=== PATIENT | female | born 1970 | race Two or more races ===

== ENCOUNTER 2016-06-18 03:43 | Emergency (ER) | payer MEDICAID ==
[~2016-06-18] VITALS: Ht 152.4 cm; Wt 80.7 kg
[2016-06-18 03:52] VITALS: BP 161/90
[2016-06-18 04:41] LABS: Basophils # (auto) 0.1 uL; Basophils % (auto) 0.6 % (0.0-2.0); DEFINITIVE VIEW TRANSMISSION; Eosinophils # (auto) 0.2 uL; Eosinophils % (auto) 1.5 % (0.0-7.0); Hemoglobin 9.4 g/dL (12.2-16.2); Lymphocytes # (auto) 4.5 uL; Lymphocytes % (auto) 37.6 % (10.0-50.0); Mean Corpuscular Hemoglobin 16.8 pg (28.0-32.0); Mean Corpuscular Hgb Conc. 30.2 g/dL (32.0-36.0); Mean Corpuscular Volume 55.8 fL (80.0-100.0); Mean Platelet Volume 8.3 fL (7.4-10.4); Monocytes # (auto) 0.7 uL; Monocytes % (auto) 5.5 % (0.0-12.0); Neutrophils # (auto) 6.6 uL; Neutrophils % (auto) 54.8 % (37.0-80.0); Platelet Count (auto) 590 10^3/uL (140-450)
[2016-06-18 05:01] LABS: Red Cell Distribution Width 22.8 % (11.6-16.0)
[2016-06-18 05:12] LABS: Albumin 3.4 g/dL (3.4-5.0); Anion Gap 15 (5-15); Aspartate Aminotransferase 16 U/L (15-37); Blood Urea Nitrogen 10 mg/dL (7-18); Calcium 8.2 mg/dL (8.5-10.1); Carbon Dioxide 21 mmol/L (21-32); Chloride 101 mmol/L (98-107); GFR African American 96 mL/min; GFR Non-African American 80 mL/min; Potassium 3.3 mmol/L (3.5-5.1); Sodium 137 mmol/L (136-145)
[2016-06-18 05:16] LABS: Alkaline Phosphatase 98 U/L (45-117); Bilirubin, Total 0.3 mg/dL (0.2-1.0); Total Protein 7.6 g/dL (6.4-8.2)
[2016-06-18 05:24] LABS: Glucose 414 mg/dL (74-106)
[2016-06-18 05:52] LABS: Anisocytosis Slight; Platelet Estimate Increased
[2016-06-18 05:53] LABS: Hypochromia Moderate; Microcytosis Marked
== END 2016-06-18 07:53 | disposition left against medical advice (07) ==
LOC: ER 03:43 → EDBD 03:43 → ER 07:53
DX: R07.89 Other chest pain (principal); M25.512 Pain in left shoulder; Z53.21 Procedure and treatment not carried out due to patient leaving prior to being seen by health care provider
CPT/HCPCS: 36415; 80053; 83735; 84484; 85025; 93005

== ENCOUNTER 2018-01-06 14:31 | Emergency (ER) | payer MEDICAID ==
[~2018-01-06] VITALS: Ht 162.6 cm; Wt 86.2 kg
[2018-01-06 15:39] LABS: Basophils # (auto) 0 uL; Basophils % (auto) 0.2 % (0.0-2.0); Eosinophils # (auto) 0 uL; Hematocrit 31.5 % (36.0-46.0); Lymphocytes # (auto) 0.3 uL; Lymphocytes % (auto) 4.2 % (10.0-50.0); Monocytes # (auto) 0 uL
[2018-01-06 15:41] LABS: Eosinophils % (auto) 0.1 % (0.0-7.0); Hemoglobin 9.7 g/dL (12.2-16.2); Mean Corpuscular Hgb Conc. 30.9 g/dL (32.0-36.0); Mean Corpuscular Volume 64.7 fL (80.0-100.0); Monocytes % (auto) 0.3 % (0.0-12.0); Neutrophils # (auto) 7.5 uL; Neutrophils % (auto) 95.2 % (37.0-80.0); Nucleated Red Blood Cells % 0.1 %; Platelet Count (auto) 308 10^3/uL (140-450); Red Blood Cells 4.86 10^6/uL (4.0-5.20); White Blood Cell 7.9 10^3/uL (4.4-10.8)
[2018-01-06 15:43] LABS: Red Cell Distribution Width 25.6 % (11.8-14.3)
[2018-01-06 15:57] LABS: BUN/Creatinine Ratio 11.4; Calcium 8.1 mg/dL (8.5-10.1); Potassium 3.3 mmol/L (3.5-5.1)
[2018-01-06 16:00] LABS: Bilirubin, Total 0.4 mg/dL (0.2-1.0); Total Protein 7.1 g/dL (6.4-8.2)
[2018-01-06] MEDS ORDERED: SODIUM CHLORIDE 0.9% 1,000 ML IV ONE ×2 (16:14)
[2018-01-06] MEDS ORDERED: cefTRIAXone 1GM/10ml IVPUSH 10 ML IV ONE ×2 (16:45→17:22)
[2018-01-06] MEDS ORDERED: POTASSIUM EFFERVESENT TAB 25 MEQ PO ONE (16:45)
[2018-01-06] MEDS ORDERED: POTASSIUM EFFERVESENT TAB 25 MEQ ONE (17:22)
[2018-01-06 17:38] VITALS: BP 187/107
[2018-01-06] MEDS ORDERED: cloNIDine HCL 0.1 MG TAB ONE (17:39)
[2018-01-06] MEDS ORDERED: ACETAMINOPHEN 500 MG TAB PO ONE ×2 (17:40→17:45)
[2018-01-06 17:44] LABS: Urine Bacteria NONE SEEN /hpf (None Seen); Urine Blood 3+ /uL (Negative); Urine Mucus FEW (None Seen); Urine Specific Gravity 1.017 (1.001-1.035); Urine WBC 190 /hpf (0 - 5); Urine WBC Clumps PRESENT /hpf (None Seen)
[2018-01-06] MEDS ORDERED: cloNIDine HCL 0.1 MG TAB PO ONE (17:45)
[2018-01-06] MEDS ORDERED: IBUPROFEN 600 MG TAB PO ONE ×2 (18:09→18:15)
== END 2018-01-06 18:47 | disposition home or self-care (01) ==
LOC: EDBD 14:31 → ER 14:37
DX: E11.65 Type 2 diabetes mellitus with hyperglycemia (principal); J40 Bronchitis, not specified as acute or chronic; E87.6 Hypokalemia; N12 Tubulo-interstitial nephritis, not specified as acute or chronic; E11.9 Type 2 diabetes mellitus without complications; I10 Essential (primary) hypertension
CPT/HCPCS: 36415; 71045; 74176; 80053; 81001; 81025; 85025; 87040; 93005; 96361; 96374; 99285; J0696; J7030

== ENCOUNTER 2022-09-13 23:14 | Inpatient (IN) | payer MEDICAID ==
[~2022-09-13] VITALS: Ht 152.4 cm; Wt 75.0 kg
[2022-09-13 23:47] LABS: Eosinophils # (auto) 0.3 10 ^3/uL (0-0.8); Eosinophils % (auto) 2.5 % (0.0-7.0); Hemoglobin 13.6 g/dL (12.2-16.2); Lymphocytes # (auto) 3.5 10 ^3/uL (0.4-5.4); Nucleated Red Blood Cells % 0.1 %; Red Cell Distribution Width 16.6 % (11.8-14.3)
[2022-09-13 23:49] LABS: Basophils # (auto) 0 10 ^3/uL (0-0.2); Basophils % (auto) 0.5 % (0.0-2.0); Hematocrit 41.3 % (36.0-46.0); Lymphocytes % (auto) 33.6 % (10.0-50.0); Mean Corpuscular Hemoglobin 26.6 pg (28.0-32.0); Mean Corpuscular Hgb Conc. 32.9 g/dL (32.0-36.0); Mean Corpuscular Volume 80.8 fL (80.0-100.0); Monocytes # (auto) 0.7 10 ^3/uL (0-1.3); Monocytes % (auto) 6.7 % (0.0-12.0); Neutrophils % (auto) 56.7 % (37.0-80.0); Red Blood Cells 5.11 10^6/uL (4.0-5.20); White Blood Cell 10.5 10^3/uL (4.4-10.8)
[2022-09-14 00:06] LABS: Albumin 3.3 g/dL (3.4-5.0); BUN/Creatinine Ratio 14.1 (10.0-20.0); Potassium 3.7 mmol/L (3.5-5.1)
[2022-09-14 00:07] LABS: INR 0.93 (0.9-1.15); Partial Thromboplastin Time 28.8 sec (24.6-33.4)
[2022-09-14 00:09] LABS: Bilirubin, Total 0.3 mg/dL (0.2-1.0); Lactic Acid w/Reflex 2.8 mmol/L (0.4-2.0); Total Protein 7.7 g/dL (6.4-8.2)
[2022-09-14] MEDS ORDERED: HEPARIN SODIUM (PORCINE) 5000 UNITS/ML 1ML VIAL IV ONE (00:30)
[2022-09-14] MEDS ORDERED: HEPARIN DRIP/D5W 100UNITS/ML 250 ML IV SCH ×2 (00:30→15:30)
[2022-09-14] MEDS ORDERED: HYDROcodone-ACET 5/325MG TAB PO PRN (05:30)
[2022-09-14] MEDS ORDERED: ONDANSETRON HCL 4 MG/2 ML VIAL IV PRN (05:30)
[2022-09-14] MEDS ORDERED: DEXTROSE (50%) 50ML SYRG IV PRN (05:30)
[2022-09-14] MEDS ORDERED: SODIUM CHLORIDE 0.9% 1,000 ML IV SCH (05:30)
[2022-09-14] MEDS ORDERED: ACETAMINOPHEN 325 MG TAB PO PRN (05:30)
[2022-09-14] MEDS ORDERED: DOCUSATE SOD 100 MG CAP PO PRN (05:30)
[2022-09-14] MEDS ORDERED: MORPHINE SULFATE INJ 2 MG/ml SYRG IV PRN (06:00)
[2022-09-14] MEDS ORDERED: NITROGLYCERIN 0.4 MG SL TAB SL PRN (06:00)
[2022-09-14] MEDS: InsuLIN REG 1unit/0.01ml Soln (100units/ml) SC SCH ×2 (06:51→15:58)
[2022-09-14] MEDS: ACCU-CHEK COMFORT CURVE STRIP VI SCH ×2 (06:52→15:54)
[2022-09-14 07:21] LABS: Basophils # (auto) 0 10 ^3/uL (0-0.2); Eosinophils # (auto) 0.3 10 ^3/uL (0-0.8); Hemoglobin 12.8 g/dL (12.2-16.2); Lymphocytes # (auto) 3.2 10 ^3/uL (0.4-5.4); Lymphocytes % (auto) 31.7 % (10.0-50.0); Monocytes # (auto) 0.6 10 ^3/uL (0-1.3); White Blood Cell 10.2 10^3/uL (4.4-10.8)
[2022-09-14 07:23] LABS: Basophils % (auto) 0.5 % (0.0-2.0); Eosinophils % (auto) 2.6 % (0.0-7.0); Hematocrit 38.3 % (36.0-46.0); Mean Corpuscular Hemoglobin 26.5 pg (28.0-32.0); Mean Corpuscular Hgb Conc. 33.5 g/dL (32.0-36.0); Monocytes % (auto) 5.9 % (0.0-12.0); Neutrophils % (auto) 59.3 % (37.0-80.0); Nucleated Red Blood Cells % 0.1 %; Red Blood Cells 4.85 10^6/uL (4.0-5.20); Red Cell Distribution Width 16.8 % (11.8-14.3)
[2022-09-14 07:35] LABS: INR 0.96 (0.9-1.15); Partial Thromboplastin Time 58.9 sec (24.6-33.4)
[2022-09-14 07:39] LABS: Albumin 3.2 g/dL (3.4-5.0); Calcium 8.5 mg/dL (8.5-10.1); Potassium 3.5 mmol/L (3.5-5.1)
[2022-09-14 07:43] LABS: BUN/Creatinine Ratio 15.9 (10.0-20.0); Bilirubin, Total 0.3 mg/dL (0.2-1.0); Total Protein 6.9 g/dL (6.4-8.2)
[2022-09-14] MEDS ORDERED: SODIUM CHLORIDE 0.9% 500 ML IV ONE (07:45)
[2022-09-14] MEDS ORDERED: cefTRIAXone 1GM/50ML D5W 50 ML IV SCH (09:00)
[2022-09-14 09:09] VITALS: BP 152/85
[2022-09-14] MEDS ORDERED: HEPARIN SODIUM (PORCINE) 5000 UNITS/ML 1ML VIAL SC SCH (10:00)
[2022-09-14] MEDS ORDERED: ASPirin 81 mg TAB PO SCH (10:00)
[2022-09-14] MEDS ORDERED: FAMOTIDINE (10MG/ML) 2ML VL IV SCH (10:00)
[2022-09-14] MEDS ORDERED: ENALAPRIL MALEATE 2.5 MG TAB PO ONE (14:15)
[2022-09-14] MEDS ORDERED: CARVEDILOL 3.125 MG TAB PO ONE (14:15)
[2022-09-14 14:49] LABS: INR 0.97 (0.9-1.15); Partial Thromboplastin Time 45.6 sec (24.6-33.4)
[2022-09-14] MEDS ORDERED: InsuLIN REG 1unit/0.01ml Soln (100units/ml) SC SCH (22:00)
[2022-09-14] MEDS ORDERED: TICAGRELOR 60 MG TAB PO SCH (22:00)
[2022-09-14] MEDS ORDERED: CARVEDILOL 3.125 MG TAB PO SCH (22:00)
[2022-09-14] MEDS ORDERED: ATORVASTATIN 20 MG TAB PO SCH ×2 (22:00)
[2022-09-14] MEDS ORDERED: INSULIN LANTUS (GLARGINE) 1 /0.01ml (100units/ml) SC SCH (22:00)
[2022-09-15] MEDS ORDERED: ENALAPRIL MALEATE 2.5 MG TAB PO SCH (10:00)
== END 2022-09-14 17:00 | disposition left against medical advice (07) | DRG 190 ==
LOC: EDBD 23:14 → ER 23:14 → TELE 09-14 05:57
PROVIDERS: ADMIT Nurse Practitioner Family; ATTEND Internal Medicine
DX: I21.4 Non-ST elevation (NSTEMI) myocardial infarction (principal); E87.20 Acidosis, unspecified; E11.65 Type 2 diabetes mellitus with hyperglycemia; I10 Essential (primary) hypertension; I25.10 Atherosclerotic heart disease of native coronary artery without angina pectoris; L02.416 Cutaneous abscess of left lower limb; L03.116 Cellulitis of left lower limb; Z53.29 Procedure and treatment not carried out because of patient's decision for other reasons; I25.2 Old myocardial infarction
CPT/HCPCS: 36415; 80053; 82962; 83036; 83605; 83735; 83880; 84484; 85025; 85610; 85730; 86850; 86900; 86901; 93005; 96361; 96365; 96375; 99291; G0378; J1815; J3490

== ENCOUNTER 2023-02-16 00:25 | Emergency (ER) | payer MEDICAID ==
[~2023-02-16] VITALS: Ht 152.4 cm; Wt 86.5 kg
[2023-02-16 00:52] VITALS: PULSE 67; RESP 16; O2SAT 96
[2023-02-16 01:01] LABS: Eosinophils # (auto) 0.2 10 ^3/uL (0-0.8); Monocytes # (auto) 0.6 10 ^3/uL (0-1.3); Neutrophils # (auto) 3.4 10 ^3/uL (1.6-8.6); White Blood Cell 8.1 10^3/uL (4.4-10.8)
[2023-02-16 01:03] LABS: Basophils # (auto) 0 10 ^3/uL (0-0.2); Basophils % (auto) 0.6 % (0.0-2.0); Eosinophils % (auto) 1.9 % (0.0-7.0); Hematocrit 40.3 % (36.0-46.0); Hemoglobin 13.3 g/dL (12.2-16.2); Lymphocytes # (auto) 3.9 10 ^3/uL (0.4-5.4); Mean Corpuscular Hemoglobin 27.3 pg (28.0-32.0); Mean Corpuscular Volume 82.7 fL (80.0-100.0); Monocytes % (auto) 7.7 % (0.0-12.0); Neutrophils % (auto) 41.8 % (37.0-80.0); Nucleated Red Blood Cells % 0.2 %; Red Blood Cells 4.86 10^6/uL (4.0-5.20); Red Cell Distribution Width 15.5 % (11.8-14.3)
[2023-02-16 01:14] LABS: Alanine Aminotransferase 12 U/L (7-40); Albumin 4.1 g/dL (3.2-4.8); Alkaline Phosphatase 126 U/L (46-116); Anion Gap 6 (5-15); Aspartate Aminotransferase 11 U/L (13-40); BUN/Creatinine Ratio 9.8 (10.0-20.0); Bilirubin, Total 0.4 mg/dL (0.2-1.0); Blood Urea Nitrogen 9 mg/dL (9-23); Calcium 9.3 mg/dL (8.7-10.4); Carbon Dioxide 26 mmol/L (20-30); Chloride 100 mmol/L (98-107); Magnesium 1.9 mg/dL (1.6-2.6); Potassium 4.2 mmol/L (3.5-5.1); Sodium 132 mmol/L (136-145); Total Protein 6.9 g/dL (5.7-8.2)
[2023-02-16 01:18] LABS: INR 0.96 (0.9-1.15); Partial Thromboplastin Time 27.8 SEC (24.5-34.5); Prothrombin Time 10.1 sec (9.3-11.8)
[2023-02-16 01:45] LABS: Glucose 435 mg/dL (74-106)
[2023-02-16] MEDS ORDERED: NITROGLYCERIN 2% OINT 1GM PKG TD STA (03:07)
[2023-02-16] MEDS ORDERED: PANTOPRAZOLE 40 MG/10 ML VIAL INJ IV ONE (03:15)
[2023-02-16] MEDS ORDERED: ASPirin 81 mg TAB PO ONE (03:15)
[2023-02-16] MEDS ORDERED: ENOXAPARIN SOD 80 MG/0.8ML SYRINGE SC ONE (03:15)
[2023-02-16] MEDS ORDERED: SODIUM CHLORIDE 0.9% 1,000 ML IVB ONE (03:15)
[2023-02-16] MEDS ORDERED: InsuLIN REG 1unit/0.01ml Soln (100units/ml) IV ONE (03:15)
[2023-02-16] MEDS ORDERED: MORPHINE SULFATE 4 MG/ML SYR/VIAL IV ONE (03:15)
[2023-02-16] MEDS ORDERED: ONDANSETRON HCL 4 MG/2 ML VIAL IV ONE (03:15)
[2023-02-16 05:15] VITALS: BP 105/63; PULSE 66; RESP 16; TEMP 97.5; O2SAT 98
== END 2023-02-16 05:41 | disposition short-term general hospital (02) ==
LOC: EDBD 00:25 → ER 00:25
DX: I24.9 Acute ischemic heart disease, unspecified (principal); E11.65 Type 2 diabetes mellitus with hyperglycemia; I10 Essential (primary) hypertension; F41.9 Anxiety disorder, unspecified; I11.0 Hypertensive heart disease with heart failure; I50.9 Heart failure, unspecified; I25.2 Old myocardial infarction; R42 Dizziness and giddiness; Z98.51 Tubal ligation status; Z95.5 Presence of coronary angioplasty implant and graft
CPT/HCPCS: 36415; 71045; 80053; 82962; 83735; 83880; 84484; 85025; 85610; 85730; 93005; 96361; 96372; 96374; 99285; C9113; J1650; J1815; J2405; J7030

== ENCOUNTER 2024-07-27 17:59 | Emergency (ER) | payer MEDICAID ==
[~2024-07-27] VITALS: Ht 167.6 cm; Wt 64.0 kg
--- NOTE | 2024-07-27 18:18 | ED.PDOC ---
History of present illness HPI Comments 53 y.o female presents to the ED via EMS for an evaluation of increased urine frequency, thirst and generalized weakness x 2 days. Patient reports testing positive for covid-19 2 days ago, since has been weak but states weakness worsened last night around 0300. EMS reported a temperature of 100.3 F but other dalal stable vital signs en route that include blood pressure of 117/60, heart rate of 68 and SPO2 of 97% RA. Patient BG read 575 on scene, per patient reports she did not take her insulin today but is compliant with all medication on a daily basis. Patient denies any chest pain, SOB, vomiting, chills, leg swelling. Patient was nauseous en route and EMS administrated Zofran PO with relief. Vitals Temperature: 100.3 F BP: 132/70 HR: 88 RR: 18 SPO2: 97% RA Past medical history: CHF, DM, HTN, DKA x 2 on Lasix Past surgical history: PTCA x 1 and one HPI: Poor Historian. REVIEW OF SYSTEMS: CONSTITUTIONAL: Denies acute: fever, diaphoresis, chills, HEAD: Denies acute: headache, photophobia Eyes: Denies acute: Double vision, vision loss, eye pain, eye discharge. EARS: Denies acute: tinnitus, hearing loss, ear discharge, ear pain, THROAT: Denies acute: sore throat, swelling, difficulty swallowing , pain with swallowing, change in voice. NECK: Denies acute: neck pain, neck swelling, stiff neck. HEART: Denies acute : chest pain, palpitations, LUNGS: Denies acute: SOB, wheezing, cough, hemoptysis ABDOMEN: Denies acute: abdominal pain, Nausea, Vomiting, diarrhea, melena , hematemesis, hematochezia SKIN: Denies acute: rash, redness, lesions, itchiness. EXTREMITIES: Denies acute: calf pain, numbness, tingling, weakness, denies pain in extremity. Denies acute: Low back pain. Neuro: Denies acute: focal neurological deficit, motor or sensory focal neurological deficit, tremors, seizure like activity, confusion, dizziness, change in mental status, loss of bowel or bladder function, cauda equina like symptoms. : Denies acute: dysuria, hematuria, flank pain, increase in urinary frequency. PSYCH: Denies acute: hallucination, suicidal ideation, homicidal ideation. FEMALE: Denies acute: abnormal vaginal bleeding, foul odor, unusual discharge. PHYSICAL EXAM: General: ----mild----acute distress, awake and alert. Head: normocephalic, atraumatic. Neck: supple, trachea is midline, no swelling. Throat: Normal phonation. Eyes:, no erythema, no purulent discharge, no proptosis, no icterus. Heart: regular rate, regular rhythm, no significant murmur appreciated. Lungs: no apparent respiratory distress, Able to speak in full sentences. No wheezing, no rhonchi, no crackles. No stridors Clear to auscultation bilaterally. Abdomen: non tender to palpation, non distended, soft, no guarding, no rebound, + bowel sounds. Neuro: Awake, Alert, oriented to name, self, situation, follows commands GCS=15. Speech is normal. Skin: no petechia, no purpura, no cyanosis, non-pale, not jaundice. Lower extremities: --trace bilateral - Pitting edema no deformity, no focal swelling, no calf TTP. Makes eye contact. moves all four extremities. Face: no apparent facial droop. Ambulating in the ED independently. No nystagmus. No nuchal rigidity, Kernig's sign, Brudzinski's sign, no meningeal signs. ED COURSE: Chief Complaint: General Weakness Time Seen by MD: 18:03 Primary Care Provider: NONE History of present illness: Nurses Notes, Allergies Allergies: Coded Allergies: NO KNOWN ALLERGIES (Unverified , 09/20/14) Information Source: Patient, Emergency Med Personnel Mode of Arrival: EMS Past Medical History PAST MEDICAL HISTORY: Anxiety, CHF, Depression, DM, HTN, NV Surgical History: BTL, , PTCA PARTS SPECIALIST History: No Pertinent PARTS SPECIALIST History Family History Family History: No family hx of Cancer, No family hx of DM, No family hx of Heart sherly, No family hx of HTN, No family hx of Stroke Social History Smoker: Non-Smoker Alcohol: Denies ETOH Use Drugs: Denies Drug Use Lives In: Home Was a procedure done? Was a procedure done?: No Differential Diagnosis (DM) Differential Diagnosis: Dehydration, Diabetic Coma, Electrolyte Abnormality, Hyperglycemia, Hyperosmolar State, Other (Includes but not limited to thyroid disease, encephalopathy, electrolyte abnormality, sepsis, infection, intracranial pathology, drug adverse effects, arrhythmia, kidney insufficiency, ACS, CVA, malignancy, anemia) X-Ray, Labs, Meds, VS Vital Signs Date Time Temp Pulse Resp B/P (MAP) Pulse Ox O2 Delivery O2 Flow Rate FiO2 07/28/24 00:38 100.1 86 16 101/60 (74) 97 100.1 07/27/24 18:04 100.3 68 18 132/70 (90) 97 100.3 07/27/24 18:04 88 Lab Test 07/28/24 00:49 07/28/24 00:38 07/27/24 22:57 07/27/24 21:21 Range/Units Sodium Level 126 L 136-145 mmol/L Potassium Level 4.5 3.5-5.1 mmol/L Chloride Level 94 L 98-107 mmol/L Carbon Dioxide Level 20 20-31 mmol/L Anion Gap 12 5-15 Blood Urea Nitrogen 17 9-23 mg/dL Creatinine 1.10 H 0.550-1.02 mg/dL Glomerular Filtration Rate Calc 61 >90 mL/min BUN/Creatinine Ratio 15.5 10.0-20.0 Serum Glucose 542 *H 74-106 mg/dL Calcium Level 9.2 8.7-10.4 mg/dL Total Bilirubin 0.5 0.2-1.0 mg/dL Aspartate Amino Transferase (AST) 10 L 13-40 U/L Alanine Aminotransferase (ALT) < 9 7-40 U/L Alkaline Phosphatase 98 46-116 U/L Total Protein 7.0 5.7-8.2 g/dL Albumin 3.9 3.2-4.8 g/dL POC Glucose 523 *H 70-106 mg/dl Urine Color Colorless Yellow Urine Clarity Turbid H Clear Urine pH 5.0 5.0-9.0 Urine Specific [place] 1.026 1.001-1.035 Urine Protein Trace H Negative Urine Ketones 1+ H Negative Urine Blood 1+ H Negative /uL Urine Nitrite Negative Negative Urine Bilirubin Negative Negative Urine Urobilinogen Normal Negative mg/dL Urine Leukocyte Esterase 2+ Negative /uL Urine RBC 11 0 - 4 /hpf Urine Microscopic WBC 66 H 0-5 /HPF Urine Squamous Epithelial Cells Few <5 /hpf Urine Bacteria None seen None Seen /hpf Urine Glucose 4+ H Normal mg/dL Troponin I High Sensitivity 8 </=34 ng/L Test 07/27/24 20:52 07/27/24 20:06 07/27/24 18:22 Range/Units Blood Gas Specimen Type Arterial Blood Gas Sample Site Right radial Blood Gas Patient Temperature 37.0 Arterial Blood Date Drawn [id number] Arterial Blood pH 7.443 7.350-7.450 Arterial Blood Partial Pressure CO2 27.0 L 32.0-45.0 mmHg Arterial Blood Partial Pressure O2 66.8 L 83.0-108.0 mmHg Arterial Blood HCO3 18.1 L 21.0-28.0 mmol/L Arterial Blood Oxygen Saturation 94.1 94.0-98.0 % Arterial Blood Base Excess -4.6 L -2.0-3.0 mmol/L Arterial Blood Oxyhemoglobin 93.3 L 94.0-98.0 % Arterial Blood Carboxyhemoglobin 0.4 L 0.5-1.5 % Arterial Blood Methemoglobin 0.4 0.0-1.5 % Gil Test Modified Blood Gas Total Hemoglobin 13.10 12.0-16.0 g/dL Blood Gas Modality Room air FiO2 % 21.0 Troponin I High Sensitivity 9 8 </=34 ng/L White Blood Count 9.3 4.4-10.8 10^3/uL Red Blood Count 4.44 4.0-5.20 10^6/uL Hemoglobin 13.1 12.2-16.2 g/dL Hematocrit 37.3 36.0-46.0 % Mean Corpuscular Volume 84.1 80.0-100.0 fL Mean Corpuscular Hemoglobin 29.4 28.0-32.0 pg Mean Corpuscular Hemoglobin Concent 35.0 32.0-36.0 g/dL Red Cell Distribution Width 14.9 H 11.8-14.3 % Platelet Count 210 140-450 10^3/uL Mean Platelet Volume 8.7 6.9-10.8 fL Neutrophils (%) (Auto) 74.2 37.0-80.0 % Lymphocytes (%) (Auto) 17.7 10.0-50.0 % Monocytes (%) (Auto) 7.8 0.0-12.0 % Eosinophils (%) (Auto) 0.1 0.0-7.0 % Basophils (%) (Auto) 0.2 0.0-2.0 % Neutrophils # (Auto) 6.9 1.6-8.6 10 ^3/uL Lymphocytes # (Auto) 1.6 0.4-5.4 10 ^3/uL Monocytes # (Auto) 0.7 0-1.3 10 ^3/uL Eosinophils # (Auto) 0 0-0.8 10 ^3/uL Basophils # (Auto) 0 0-0.2 10 ^3/uL Nucleated Red Blood Cells 0.0 % Sodium Level 128 L 136-145 mmol/L Potassium Level 4.0 3.5-5.1 mmol/L Chloride Level 94 L 98-107 mmol/L Carbon Dioxide Level 23 20-31 mmol/L Anion Gap 11 5-15 Blood Urea Nitrogen 12 9-23 mg/dL Creatinine 0.85 0.550-1.02 mg/dL Glomerular Filtration Rate Calc 83 >90 mL/min BUN/Creatinine Ratio 14.1 10.0-20.0 Serum Glucose 444 *H 74-106 mg/dL Lactic Acid Level 1.6 0.4-2.0 mmol/L Calcium Level 9.6 8.7-10.4 mg/dL Magnesium Level 2.0 1.6-2.6 mg/dL Total Bilirubin 0.6 0.2-1.0 mg/dL Aspartate Amino Transferase (AST) 13 13-40 U/L Alanine Aminotransferase (ALT) 10 7-40 U/L Alkaline Phosphatase 104 46-116 U/L B-Type Natriuretic Peptide 40.21 0-100 pg/mL Total Protein 7.1 5.7-8.2 g/dL Albumin 3.9 3.2-4.8 g/dL Beta-Hydroxybutyric Acid 2.225 H < 0.4 mmol/L Current Medications Medications (Trade) Dose Ordered Sig/Ross Route Start Time Stop Time Status Last Admin Insulin Human Regular (InsuLIN R) 5 units ONCE ONCE IV 07/27/24 18:15 07/27/24 18:16 DC 07/27/24 18:29 Ceftriaxone Sodium 50 ml @ 100 mls/hr ONCE ONCE IV 07/27/24 23:15 07/27/24 23:44 DC 07/28/24 00:37 Dexamethasone Sodium Phosphate (Decadron Injection) 10 mg ONCE STAT IV 07/28/24 00:33 07/28/24 00:35 DC 07/28/24 00:39 Insulin Human Regular (InsuLIN R) 10 units ONCE ONCE IV 07/28/24 00:45 07/28/24 00:46 DC 07/28/24 01:43 PATIENT: RUPESH GAMBINOCCT: [id number]: [id number] : 1970 LOC: ER ROOM / BED: / AGE / SEX: 53 / F ADM STATUS: REG ER SERVICE 07 ORDERING PHYSICIAN: HUGO SELLERS DO PROCEDURE(s): CXRP - CHEST PORTABLE REASON: WEAK, COVID ORDER NUMBER(s): [id number], ACCESSION NUMBER(s): [id number] CHEST RADIOGRAPH Indication: WEAK, COVID Technique: Single frontal view of the chest was obtained Comparison: XY CHEST PORTABLE on DOS: 02/16/23, XY CHEST XRAY 1 VIEW on DOS: 09/13/22 FINDINGS: There is mild pulmonary vascular prominence and possibly enlarged left ventricle. Definite consolidates or effusions not seen. IMPRESSION: 1. Mild pulmonary vascular prominence and enlarged left ventricle ATED BY: SERGIO CASTLILO MD DICTATED DATE/TIME: 07/27/241936 SIGNED BY: SERGIO CASTILLO MD SIGNED DATE/TIME: 07/27/241936 Time of 1ST Reevaluation: 18:12 Reevaluation 1ST: Unchanged Time of 2ND Reevaluation: 02:55 (We called [facility] multiple times they have not called us back. We have waited at least 2 hours. Patient now will be admitted to the medicine team for better patient care and avoid any additional delays.) Time of 3RD Reevaluation: 03:02 (The case was discussed with the [facility] admitting team (HPI, physical exam, labs and diagnostic tests that were available at the time of disposition, ED course, treatment plan) on the phone. They authorized us to keep the patient our facility. Authorization #[id number]. Dr. Juarez. She also stated that the patient ejection fraction on June 2023 was 30-35%. She had a cardiac stent placed with cardiomyopathy noted on the calf on June 2023 as well.) Reevaluation 3RD: Unchanged Patient Education/Counseling: Diagnosis, Treatment Family Education/Counseling: No Family Present Comments Patient presented with the above HPI.--generalized weakness and hyperglycemia----workup was initiated. patient was found with the above mentioned diagnosis. the following medications were ordered: please refer to order lists of meds and tests obtained by myself Dr. Sellers. Patient ED course and VS have been stabilized. Patient has been reassessed in the ED and remained in a stable condition. Pertinent incidental findings were discussed with the patient and/or family. Patient/family voices understanding and is agreeable with plan. Patient has been observed in the ED adequate length of time to insure improvement/stability. Escalation of care considered: Consideration of escalation to observation or admission Eric was contacted who authorized us to keep the patient our facility. Patient was ADMITTED to the medicine team for further evaluation and treatment of their presentation. All the reports of any imaging studies that were ordered by myself were reviewed by myself. Departure 1 Departure Time of Disposition: 21:47 Impression: Primary Impression: COVID-19 virus infection Additional Impressions: Generalized weakness Hyperglycemia due to diabetes mellitus UTI (urinary tract infection) Hypoxemia Disposition: ADMITTED INPATIENT Admit to: Tele Condition: Stable Additional Instructions: Additional instructions: You MUST follow-up with your primary care/family doctor in 1 to 2 days. If you are unable to see your primary care/family doctor, please return to our emergency room for re-assessment and re-evaluation in 1 to 2 days. Return to the emergency room here in our facility or to the nearest ER [facility] if your symptoms change or worsen. CONSULTATIONS: you MUST Follow-up for consultation as soon as possible with: -endocrinology for your diabetes. Please call for appointment. You MUST call the consultants office yourself to make an appointment. You may need to arrange that through your insurance and/or your primary/family doctor. If you are unable to see the change management consultant in 1 to 2 days, you must return to our emergency room (or any other ER of your choice) for re-assessment and re- evaluation. Adequate fluid hydration. You are contagious. Please exercise good hygiene and self quarantine and wear a mask until you are rechecked. Monitor your blood sugar at home closely. Discharged With: Self Critical Care Note Critical Care Time?: Yes (35 min-critical care time only) I personally scribed for HUGO SELLERS DO ([email or web address]) on 07/27/24 at 18:18. Electronically submitted by Doreen Keenan ([email or web address]). I personally scribed for HUGO SELLERS DO ([email or web address]) on 07/27/24 at 22:55. Electronically submitted by Benigno Morales ([email or web address]). HUGO SELLERS DO Jul 27, 2024 18:18
[2024-07-27] MEDS: InsuLIN REG 1unit/0.01ml Soln (100units/ml) IV ONE (18:29)
[2024-07-27] MEDS: InsuLIN REG 1unit/0.01ml Soln (100units/ml) ONE (18:32)
--- NOTE | 2024-07-27 18:41 | ECG ---
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
[2024-07-27 18:47] LABS: Basophils # (auto) 0 10 ^3/uL (0-0.2); Basophils % (auto) 0.2 % (0.0-2.0); Eosinophils # (auto) 0 10 ^3/uL (0-0.8); Eosinophils % (auto) 0.1 % (0.0-7.0); Hematocrit 37.3 % (36.0-46.0); Hemoglobin 13.1 g/dL (12.2-16.2); Lymphocytes # (auto) 1.6 10 ^3/uL (0.4-5.4); Lymphocytes % (auto) 17.7 % (10.0-50.0); Mean Corpuscular Hemoglobin 29.4 pg (28.0-32.0); Mean Corpuscular Volume 84.1 fL (80.0-100.0); Monocytes # (auto) 0.7 10 ^3/uL (0-1.3); Monocytes % (auto) 7.8 % (0.0-12.0); Neutrophils # (auto) 6.9 10 ^3/uL (1.6-8.6); Neutrophils % (auto) 74.2 % (37.0-80.0); Platelet Count (auto) 210 10^3/uL (140-450); Red Blood Cells 4.44 10^6/uL (4.0-5.20); Red Cell Distribution Width 14.9 % (11.8-14.3); White Blood Cell 9.3 10^3/uL (4.4-10.8)
[2024-07-27 18:54] LABS: Alanine Aminotransferase 10 U/L (7-40); Albumin 3.9 g/dL (3.2-4.8); Alkaline Phosphatase 104 U/L (46-116); Anion Gap 11 (5-15); Aspartate Aminotransferase 13 U/L (13-40); BUN/Creatinine Ratio 14.1 (10.0-20.0); Bilirubin, Total 0.6 mg/dL (0.2-1.0); Blood Urea Nitrogen 12 mg/dL (9-23); Calcium 9.6 mg/dL (8.7-10.4); Carbon Dioxide 23 mmol/L (20-31); Total Protein 7.1 g/dL (5.7-8.2)
[2024-07-27 19:12] LABS: Chloride 94 mmol/L (98-107); Sodium 128 mmol/L (136-145)
[2024-07-27 19:14] LABS: Glucose 444 mg/dL (74-106)
--- NOTE | 2024-07-27 19:40 | DVH ---
CHEST RADIOGRAPH Indication: WEAK, COVID Technique: Single frontal view of the chest was obtained Comparison: XY CHEST PORTABLE on DOS: 02/16/23, XY CHEST XRAY 1 VIEW on DOS: 09/13/22 FINDINGS: There is mild pulmonary vascular prominence and possibly enlarged left ventricle. Definite consolidat es or effusions not seen. IMPRESSION: 1. Mild pulmonary vascular prominence and enlarged left ventricle
[2024-07-27 20:57] LABS: Base Excess -4.6 mmol/L (-2.0-3.0)
[2024-07-27] MEDS: FUROSEMIDE 20 MG/2 ML VIAL IV ONE (22:31)
[2024-07-27 22:59] LABS: Urine Bacteria None Seen /hpf (None Seen)
[2024-07-27 23:09] LABS: Urine Blood 1+ /uL (Negative); Urine Clarity Turbid (Clear); Urine Color Colorless (Yellow); Urine Protein, UAD TRACE (Negative); Urine Specific Gravity 1.026 (1.001-1.035); Urine Squamous Epithelial Cell FEW /hpf (<5); Urine Urobilinogen Normal (Negative); Urine WBC 66 /HPF (0-5)
[2024-07-28] MEDS: cefTRIAXone 1GM/50ML D5W 50 ML IV ONE (00:37)
[2024-07-28] MEDS: DexAMETHasone SOD PHOS 10MG/1ML VIAL INJ IV STA (00:39)
[2024-07-28 01:11] LABS: Albumin 3.9 g/dL (3.2-4.8); Alkaline Phosphatase 98 U/L (46-116); Anion Gap 12 (5-15); BUN/Creatinine Ratio 15.5 (10.0-20.0); Bilirubin, Total 0.5 mg/dL (0.2-1.0); Blood Urea Nitrogen 17 mg/dL (9-23); Calcium 9.2 mg/dL (8.7-10.4); Carbon Dioxide 20 mmol/L (20-31); Potassium 4.5 mmol/L (3.5-5.1)
[2024-07-28 01:12] LABS: Alanine Aminotransferase < 9 U/L (7-40); Aspartate Aminotransferase 10 U/L (13-40); Chloride 94 mmol/L (98-107); Sodium 126 mmol/L (136-145)
[2024-07-28 01:13] LABS: Glucose 542 mg/dL (74-106)
[2024-07-28] MEDS: InsuLIN REG 1unit/0.01ml Soln (100units/ml) IV ONE (01:43)
[2024-07-28 07:16] VITALS: BP 121/74; PULSE 82; RESP 18; TEMP 99.7; O2SAT 98
[2024-07-28] MEDS: SODIUM CHLORIDE 0.9% 1,000 ML IV ONE (07:25)
== END 2024-07-28 08:50 | disposition left against medical advice (07) ==
LOC: EDBD 17:59 → ER 17:59
DX: U07.1 COVID-19 (principal); E11.65 Type 2 diabetes mellitus with hyperglycemia; N39.0 Urinary tract infection, site not specified; R09.02 Hypoxemia; F41.9 Anxiety disorder, unspecified; F32.A Depression, unspecified; I11.0 Hypertensive heart disease with heart failure; I50.9 Heart failure, unspecified; I25.2 Old myocardial infarction; Z98.890 Other specified postprocedural states; Z98.51 Tubal ligation status
CPT/HCPCS: 36415; 36600; 71045; 80053; 81001; 82010; 82805; 82947; 83605; 83735; 83880; 84484; 85025; 87040; 87077; 87186; 93005; 96361; 96365; 96375; 96376; 99285; J0696; J1100; J1815; J7030; 82962

== ENCOUNTER 2024-10-08 17:46 | Emergency (ER) | payer MEDICAID ==
[~2024-10-08] VITALS: Ht 152.4 cm; Wt 67.7 kg
[2024-10-08 18:29] VITALS: PULSE 79; RESP 19; O2SAT 96
[2024-10-08 19:00] VITALS: TEMP 97.9
--- NOTE | 2024-10-08 19:17 | ED.PDOC ---
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 Patient reported she was apparently well until yesterday and in the morning had 2-3 episodes of shock-like chest pain which was substernal in location, nonradiating, occurred at rest, no abdominal pain, no perspiration. Patient reported of feeling anxious with feeling of "running out of her on body" and her whole body felt weak. Patient denied shortness of the breath, palpitations . As per the EMS patient was noted to be hypotensive with a SBP in the 90s and was given 500 mL of fluid bolus. Patient reported that she saw her marketing representative last week and her blood pressure was running low following which medications were decreased. Patient denied any dizziness, headache, blurred vision. Chief Complaint: Chest Pain Time Seen by MD: 17:52 Primary Care Provider: NONE Reviewed Notes: Nurses Notes, Technical Developer Notes, Medications, Allergies Allergies: Coded Allergies: NO KNOWN ALLERGIES (Unverified , 09/20/14) Information Source: Patient Mode of Arrival: EMS Severity: Mild, Moderate Timing: Hours Duration: Intermittent Prehospital treatment: IVF, NTG Location: Substernal Radiation: No Radiation Quality: Sharp Onset: At Rest Cardiac Risk Factors: Hyperlipidemia, HTN, Diabetes PE Risk Factors: None History of: AL (AL x3), Angioplasty Modifying Factors: Nothing Associated Signs and Symptoms: None Past Medical History PAST MEDICAL HISTORY: Anxiety, CHF, Depression, DM, HTN, AL Surgical History: BTL, , 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 History Family History Family History: No family hx of Cancer, No family hx of DM, No family hx of Heart sherly, No family hx of HTN, No family hx of Stroke Social History Smoker: Non-Smoker Alcohol: Denies ETOH Use Drugs: Denies Drug Use Lives In: Home Constitutional: reports: fatigue, weakness EENTM: denies: blurred vision, double vision, ear bleeding, ear discharge, ear drainage, ear pain, ear ringing, eye pain, eye redness, hearing loss, mouth pain, mouth swelling, nasal discharge, nose bleeding, nose congestion, nose pain, photophobia, tearing, throat pain, throat swelling, voice changes, others Respiratory: denies: cough, hemoptysis, orthopnea, SOB at rest, shortness of breath, SOB with excertion, stridor, wheezing, others Cardiovascular: denies: chest pain, dizzy spells, diaphoresis, Dyspnea on exertion, edema, irregular heart beat, left arm pain, lightheadedness, palpitations, PND, syncope, others Gastrointestinal: denies: abdomen distended, abdominal pain, blood streaked bowels, constipated, diarrhea, dysphagia, difficulty swallowing, hematemesis, m gretta, nausea, poor appetite, poor fluid intake, rectal bleeding, rectal pain, vomiting, others Genitourinary: denies: abnormal vagina bleeding, burning, dyspareunia, dysuria, flank pain, frequency, hematuria, incontinence, pain, , vagina discharge, urgency, others Neurological: denies: dizziness, fainting, headache, left sided numbness, left sided weakness, numbness, paresthesia, pre-existing deficit, right sided numbness, right sided weakness, seizure, speech problems, tingling, tremors, weakness, others Musculoskeletal: denies: back pain, gout, joint pain, joint swelling, muscle pain, muscle stiffness, neck pain, others Integumetry: denies: bruises, change in color, change in hair/nails, dryness, laceration, lesions, lumps, rash, wounds, others Allergic/Immunocompromised: denies: Difficulty Healing, Frequent Infections, Hives, Itching, others Hematologic/Lymphatic: denies: anemia, blood clots, easy bleeding, easy bruising, swollen glands, others Endocrine: denies: excessive hunger, excessive sweating, excessive thirst, excessive urination, flushing, intolerance to cold, intolerance to heat, unexpla ined weight gain, unexplained weight loss, others Psychiatric: denies: anxiety, bipolar disorder, depression, hopeless, panic disorder, schizophrenia, sleepless, suicidal, others Physical Exam General Appearance: Mild Distress HEENT: Normal ENT Inspection, Pharynx Normal, TMs Normal Neck: Full Range of Motion, Non-Tender, Normal, Normal Inspection Respiratory: Chest Non-Tender, Lungs Clear, No Accessory Muscle Use, No Respiratory Distress, Normal Breath Sounds Cardiovascular: No Edema, No JVD, No Murmur, No Gallop, Normal Peripheral Pulses, Regular Rate/Rhythm Breast Exam: Deferred Gastrointestinal: No Organomegaly, Non Tender, No Pulsatile Mass, Normal Bowel Sounds, Soft Genitalia: Deferred Pelvic: Deferred Rectal: Deferred Extremities: No calf tenderness, Normal capillary refill, Normal inspection, Normal range of motion, Non-tender, No pedal edema Neurologic: Alert, geomorphology teacher II-XII nml as Tested, No Motor Deficits, Normal Affect, Normal Mood, No Sensory Deficits Cerebellar Function: Normal Reflexes: Normal Skin: Dry, Normal Color, Warm Peripheral Pulses: 2+ carotid (R), 2+ carotid (L), 2+ femoral (R), 2+ femoral (L), 2+ dorsalis pedis (R), 2+ dorsalis pedis (L), 2+ Radial (R), 2+ Radial (L) Lymphatic: No Adenopathy EKG EKG : Pulse Rate (adult): 78 [place]: Normal Cardiac Rhythm: NSR Block: None Hypertrophy: LVH ST: Normal Was a procedure done? Was a procedure done?: No CP Differential Dx Differential Diagnosis: Other Differential Diagnosis: Angina, Chest Wall Pain, Costochondritis, Gastritis X-Ray, Labs, Meds, VS Vital Signs Date Time Temp Pulse Resp B/P (MAP) Pulse Ox O2 Delivery O2 Flow Rate FiO2 10/08/24 19:33 84 18 95 Room Air* 0 21 10/08/24 19:17 78 10/08/24 19:00 97.9 84 18 119/40 (66) 95 97.9 10/08/24 18:32 79 19 94/57 (69) 96 10/08/24 18:29 79 19 96 Room Air* 0 21 10/08/24 17:55 98.5 82 18 103/57 (72) 97 98.5 10/08/24 17:48 77 Lab Test 10/08/24 18:54 10/08/24 17:56 Range/Units Troponin I High Sensitivity 12 10 </=34 ng/L White Blood Count 16.1 H 4.4-10.8 10^3/uL Red Blood Count 4.39 4.0-5.20 10^6/uL Hemoglobin 12.1 L 12.2-16.2 g/dL Hematocrit 36.7 36.0-46.0 % Mean Corpuscular Volume 83.5 80.0-100.0 fL Mean Corpuscular Hemoglobin 27.6 L 28.0-32.0 pg Mean Corpuscular Hemoglobin Concent 33.1 32.0-36.0 g/dL Red Cell Distribution Width 14.5 H 11.8-14.3 % Platelet Count 412 140-450 10^3/uL Mean Platelet Volume 7.9 6.9-10.8 fL Neutrophils (%) (Auto) 81.1 H 37.0-80.0 % Lymphocytes (%) (Auto) 12.0 10.0-50.0 % Monocytes (%) (Auto) 6.6 0.0-12.0 % Eosinophils (%) (Auto) 0.1 0.0-7.0 % Basophils (%) (Auto) 0.2 0.0-2.0 % Neutrophils # (Auto) 13.1 H 1.6-8.6 10 ^3/uL Lymphocytes # (Auto) 1.9 0.4-5.4 10 ^3/uL Monocytes # (Auto) 1.1 0-1.3 10 ^3/uL Eosinophils # (Auto) 0 0-0.8 10 ^3/uL Basophils # (Auto) 0 0-0.2 10 ^3/uL Nucleated Red Blood Cells 0.1 % Sodium Level 135 L 136-145 mmol/L Potassium Level 3.7 3.5-5.1 mmol/L Chloride Level 103 98-107 mmol/L Carbon Dioxide Level 19 L 20-31 mmol/L Anion Gap 13 5-15 Blood Urea Nitrogen 10 9-23 mg/dL Creatinine 0.91 0.550-1.02 mg/dL Glomerular Filtration Rate Calc 76 >90 mL/min BUN/Creatinine Ratio 11.0 10.0-20.0 Serum Glucose 366 H 74-106 mg/dL Calcium Level 9.4 8.7-10.4 mg/dL Patient is a 54-year-old female was brought in via EMS with a chief complaint of chest pain that started earlier this morning intermittent 3-4 episodes of sharp substernal shock-like pain which was nonradiating and was brought on at rest associated with generalized weakness, EMS noted the patient to be hypotensive with a SBP in the 90s following which she was given 500 mL of bolus. On arrival to the ED ECG was done which showed sinus rhythm with LVH criteria with repolarization abnormalities including T-wave inversions in V5 V6, no ST segment or T-wave changes, serial troponins were within normal limits. Patient reported her pain had subsided. [facility] were called and were reported about the patient's HPI, talked to Dr. Nicholson who advised that patient could be discharged to home if they agreed and followed up in the outpatient clinic at [facility] for a stress test. On talking with the patient she wanted to go home and reported that she already had an appointment scheduled with a marketing representative at [facility] on October 18. [facility] number for the conversation [phone]. Patient is being discharged in stable condition to home Time of 1ST Reevaluation: 20:16 Reevaluation 1ST: Improved Patient Education/Counseling: Diagnosis, Treatment, Prognosis Family Education/Counseling: Diagnosis, Treatment, Prognosis Comments i assessed, examined, and interviewed the patient reviewed the treatment plan, reviewed the results with the resident and agree with plan SEPSIS Sepsis Screen Physician Orders Electrocardigram (10/08/24 17:50) Troponin-I Hs (10/08/24 20:50) Electrocardigram (10/08/24 18:50) Electrocardigram (10/08/24 20:50) Vital Signs Date Time Temp Pulse Resp B/P (MAP) Pulse Ox O2 Delivery O2 Flow Rate FiO2 10/08/24 19:33 84 18 95 Room Air* 0 21 10/08/24 19:17 78 10/08/24 19:00 97.9 84 18 119/40 (66) 95 97.9 10/08/24 18:32 79 19 94/57 (69) 96 10/08/24 18:29 79 19 96 Room Air* 0 21 10/08/24 17:55 98.5 82 18 103/57 (72) 97 98.5 10/08/24 17:48 77 Laboratory Tests Test 10/08/24 17:56 White Blood Count 16.1 10^3/uL (4.4-10.8) H Departure 1 Departure Time of Disposition: 21:10 Impression: Primary Impression: Chest pain Additional Impressions: Angina pectoris Anxiety Disposition: 01 HOME / SELF CARE / HOMELESS Condition: Stable Critical Care Note Critical Care Time?: No Stability Stability form required: No Heart Score Heart Score: Heart Score Response (Comments) Value History Moderate Suspicious 1 EKG Repolarization Disturb 1 Age 45-64 1 Risk Factors >3 or Hx ASHD 2 Troponin Normal limit 0 Total 5 DANIELLE MARKS RESIDENT Oct 08, 2024 19:17 JYOTI MALCOLM MD Oct 08, 2024 20:16
[2024-10-08 19:33] VITALS: PULSE 84; RESP 18; O2SAT 95
[2024-10-08 20:39] LABS: Hematocrit 36.7 % (36.0-46.0); Hemoglobin 12.1 g/dL (12.2-16.2); Mean Corpuscular Hemoglobin 27.6 pg (28.0-32.0); Mean Corpuscular Volume 83.5 fL (80.0-100.0); Nucleated Red Blood Cells % 0.1 %
[2024-10-08 20:42] LABS: Chloride 103 mmol/L (98-107); Potassium 3.7 mmol/L (3.5-5.1)
[2024-10-08 20:43] LABS: Anion Gap 13 (5-15); Calcium 9.4 mg/dL (8.7-10.4)
[2024-10-08 20:45] LABS: Carbon Dioxide 19 mmol/L (20-31); Sodium 135 mmol/L (136-145)
[2024-10-08 20:48] LABS: BUN/Creatinine Ratio 11.0 (10.0-20.0); Blood Urea Nitrogen 10 mg/dL (9-23)
[2024-10-08 20:49] LABS: Glucose 366 mg/dL (74-106)
[2024-10-08 21:21] VITALS: BP 100/55; PULSE 76; RESP 20
--- NOTE | 2024-10-09 06:06 | ECG ---
[facility] Test Date: 2024-10-08 Test Time: 21:01:49 Pat Name: ROSALVA GAMBINO Department: ED Room: Gender: F Core Paster: ALEXANDRO : 1970 Requested By: ASH MALCOLM Order Number: [id number] Reading MD: Tres Bennett Measurements Intervals [place] Rate: 74 P: 45 [place]: 136 QRS: -13 QRSD: 95 T: 0 QT: 430 QTc: 477 Interpretive Statements Sinus rhythm Left ventricular hypertrophy Nonspecific T abnormalities, lateral leads Electronically Signed On 10-15-2024 18:11:14 PDT by Tres Bennett Please click the below link to view image of tracing.
--- NOTE | 2024-10-10 06:39 | ECG ---
[facility] Test Date: 2024-10-08 Test Time: 18:49:30 Pat Name: ROSALVA GAMBINO Department: er Room: Gender: F Neon Electrician: terrance : 1970 Requested By: ASH MALCOLM Order Number: [id number] Reading MD: Tres Bennett Measurements Intervals [place] Rate: 79 P: 50 NM: 139 QRS: -1 QRSD: 85 T: 29 QT: 448 QTc: 514 Interpretive Statements Sinus rhythm Probable left atrial enlargement Abnormal R-wave progression, early transition Left ventricular hypertrophy Prolonged QT interval Electronically Signed On 10-15-2024 18:10:31 PDT by Tres Bennett Please click the below link to view image of tracing.
--- NOTE | 2024-10-12 11:43 | ECG ---
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
== END 2024-10-08 21:22 | disposition home or self-care (01) ==
LOC: ER 17:46 → EDBD 17:46 → ER 21:22
DX: I20.9 Angina pectoris, unspecified (principal); R07.89 Other chest pain; F41.9 Anxiety disorder, unspecified; I11.0 Hypertensive heart disease with heart failure; I50.9 Heart failure, unspecified; E78.5 Hyperlipidemia, unspecified; E11.9 Type 2 diabetes mellitus without complications; I25.2 Old myocardial infarction; Z95.5 Presence of coronary angioplasty implant and graft; Z98.51 Tubal ligation status
CPT/HCPCS: 36415; 80048; 84484; 85025; 93005

== ENCOUNTER 2024-12-01 20:00 | Inpatient (IN) | payer MEDICAID ==
[~2024-12-01] VITALS: Ht 154.9 cm; Wt 73.0 kg
[~2024-12-01 20:00] MED LIST: ENAL1TAB47 PO
[2024-12-01] MEDS: ACETAMINOPHEN 325 MG TAB PO ONE (20:34)
[2024-12-01 22:05] LABS: Hematocrit 40.5 % (36.0-46.0); Hemoglobin 13.6 g/dL (12.2-16.2); Mean Corpuscular Hemoglobin 27.5 pg (28.0-32.0); Mean Corpuscular Volume 82.1 fL (80.0-100.0); Nucleated Red Blood Cells % 0.1 %
[2024-12-01 22:21] LABS: Alanine Aminotransferase 13 U/L (7-40); Albumin 4.6 g/dL (3.2-4.8); Alkaline Phosphatase 103 U/L (46-116); Anion Gap 11 (5-15); BUN/Creatinine Ratio 16.1 (10.0-20.0); Blood Urea Nitrogen 15 mg/dL (9-23); Calcium 9.3 mg/dL (8.7-10.4); Carbon Dioxide 21 mmol/L (20-31); Chloride 104 mmol/L (98-107); Potassium 4.0 mmol/L (3.5-5.1); Sodium 136 mmol/L (136-145); Total Protein 7.4 g/dL (5.7-8.2)
[2024-12-01 22:22] LABS: Bilirubin, Total 0.9 mg/dL (0.2-1.0)
[2024-12-01 22:23] LABS: Glucose 190 mg/dL (74-106)
--- NOTE | 2024-12-01 22:36 | DVH ---
EXAM: CT HEAD WITHOUT CONTRAST INDICATION: WEINSTEIN TECHNIQUE: CT of the head without intravenous contrast. Radiation Dose : 1. Head: CT Dose: CTDI volume is 48.96 mGy. Dose-length product is 1.71 mGy*cm The dose indicators for CT are the volume Computed Tomography (CT) Dose Index (CTDIvol) and the Dose Length Product (DLP), and are measured in units of mGy and mGy-cm, respectively. These indicators are not patient dose, but values generated from the CT scanner acquisition factors. The report includes radiation exposure data for exposures received during this examination. COMPARISON: None FINDINGS: Brain: No acute hemorrhage, mass effect, or cerebral edema. Small right anterior periventricular whit e matter hypodensity appears near CSF attenuation, favored benign. CSF Spaces: Size and morphology within normal limits. Bones/Soft Tissues: No acute findings. Orbits/Sinuses/Mastoids: Unremarkable as visualized. IMPRESSION: 1. No acute intracranial abnormality. Radiation optimization: All CT scans at this facility use at least one of these dose optimization tiara hniques: automated exposure control mA and/or kV adjustment per patient size (includes targeted exam s where dose is matched to clinical indication) or iterative reconstruction.
--- NOTE | 2024-12-01 23:02 | ED.PDOC ---
HPI (NEURO) HPI Comments HPI: 54-year-old female presents to the emergency room via EMS with a chief complaint of headache onset today. Patient states she began experiencing a headache around 09:00, was also experiencing fever, epigastric pain. Last time she checked temperature at home was 105.2 F, took Tylenol. Upon ED arrival temperature was 102.5 F. denies chest pain, shortness of breath, dizziness, nausea, vomiting, diarrhea, constipation, dysuria, hematuria. No other symptoms or modifying factors present at this time. Initial Vitals BP: 86/10 HR: 154 RR: 16 O2: 97% Temp: 102.5 F Past Medical History: CHF, DM, HTN, PR, tubal ligation Past Surgical History: cardiac stent, Social History: Denies ETOH, smoking, and drug use. Medications: unknown Allergies: NKDA HPI: Poor Historian. REVIEW OF SYSTEMS: CONSTITUTIONAL: Denies acute: diaphoresis, chills, generalized weakness. HEAD: Denies acute: photophobia Eyes: Denies acute: Double vision, vision loss, eye pain, eye discharge. EARS: Denies acute: tinnitus, hearing loss, ear discharge, ear pain, THROAT: Denies acute: sore throat, swelling, difficulty swallowing , pain with swallowing, change in voice. NECK: Denies acute: neck pain, neck swelling, stiff neck. HEART: Denies acute : chest pain, palpitations, LUNGS: Denies acute: SOB, wheezing, cough, hemoptysis ABDOMEN: Denies acute: Nausea, Vomiting, diarrhea, melena , hematemesis, hematochezia SKIN: Denies acute: rash, redness, lesions, itchiness. EXTREMITIES: Denies acute: calf pain, numbness, tingling, weakness, denies pain in extremity. Denies acute: Low back pain. Neuro: Denies acute: focal neurological deficit, motor or sensory focal neurological deficit, tremors, seizure like activity, confusion, dizziness, change in mental status, loss of bowel or bladder function, cauda equina like symptoms. : Denies acute: dysuria, hematuria, flank pain, increase in urinary frequency. PSYCH: Denies acute: hallucination, suicidal ideation, homicidal ideation. FEMALE: Denies acute: abnormal vaginal bleeding, foul odor, unusual discharge. PHYSICAL EXAM: General: ----moderate----acute distress, awake and alert. Head: normocephalic, atraumatic. Neck: supple, trachea is midline, no swelling. Throat: Normal phonation. Eyes:, no erythema, no purulent discharge, no proptosis, no icterus. Heart: regular rate, regular rhythm, no significant murmur appreciated. Lungs: no apparent respiratory distress, Able to speak in full sentences. No wheezing, no rhonchi, no crackles. No stridors Clear to auscultation bilaterally. Abdomen: non tender to palpation, non distended, soft, no guarding, no rebound, + bowel sounds. Neuro: Awake, Alert, oriented to name, self, situation, follows commands GCS=15. Speech is normal. Skin: no petechia, no purpura, no cyanosis, non-pale, not jaundice. Lower extremities: --no - Pitting edema no deformity, no focal swelling, no calf TTP. Makes eye contact. moves all four extremities. Face: no apparent facial droop. No nuchal rigidity, Kernig's sign, Brudzinski's sign, no meningeal signs. ED COURSE: DISCLAIMER: This medical document was created using an electronic medical record system with voice recognition software and computerized dictation system. Although this document has been carefully reviewed, there might still be some phonetic and typographical errors. Occasional wrong-word or "sound-alike" substitutions may have occurred due to the inherent limitations of voice recognition software. These areas are purely typographical due to imperfections of the software programs and do not reflect any compromise in the patient's medical care. Please read the chart carefully and recognize, using context, where these substitutions have occurred. Chief Complaint: Headache Time Seen by MD: 22:50 Primary Care Provider: n/a Reviewed Notes: Medications, Allergies Information Source: Patient, Emergency Med Personnel, Spouse Mode of Arrival: EMS Severity: Moderate Headache Severity: Moderate Timing: Hours Duration: Since onset Prehospital treatment: Pain Meds (Tylenol) Headache Quality: Sharp Headache Location: Generalized Onset: At rest Circumstances: Spontaneous Symptoms: Other History of: PR, DM Modifying factors: Nothing Associated Signs and Symptoms: Headache Past Medical History PAST MEDICAL HISTORY: Anxiety, CHF, Depression, DM, HTN, PR Surgical History: BTL, , [employer]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 Was a procedure done?: No Differential Diagnosis (SZ) Seizure: N/A General Weakness: Other (Includes but not limited to thyroid disease, encephalopathy, electrolyte abnormality, sepsis, infection, intracranial pathology, drug adverse effects, arrhythmia, kidney insufficiency, ACS, CVA, malignancy, anemia) Headache: Other (DDX include Sinusitis, migraine, meningitis, hypertension, intracranial mass/bleed, stroke, radiculopathy, vertebrobasillary insufficiency, cephalgia, pseudotumor cerebri, cerebellar ischemia/infarct, carotid stenosis, lacunar infarct, vertebral/carotid artery dissection, hydrocephalus, temporal arteritis, dura venous sinus thrombosis.) X-Ray, Labs, Meds, VS Vital Signs Date Time Temp Pulse Resp B/P (MAP) Pulse Ox O2 Delivery O2 Flow Rate FiO2 12/02/24 04:59 99.6 95 12 123/73 (90) 95 99.6 12/01/24 21:15 102.5 93 16 154/86 (108) 97 102.5 12/01/24 21:15 102.5 154 16 86/10 97 102.5 12/01/24 20:34 102.5 Lab Test 12/02/24 00:20 12/01/24 23:20 12/01/24 23:07 12/01/24 22:35 Range/Units Troponin I High Sensitivity 7 10 </=34 ng/L Urine Color Colorless Yellow Urine Clarity Turbid H Clear Urine pH 5.5 5.0-9.0 Urine Specific [place] 1.025 1.001-1.035 Urine Protein Negative Negative Urine Ketones 1+ H Negative Urine Blood 2+ H Negative /uL Urine Nitrite Negative Negative Urine Bilirubin Negative Negative Urine Urobilinogen Normal Negative mg/dL Urine Leukocyte Esterase 2+ Negative /uL Urine RBC 5 0 - 4 /hpf Urine Microscopic WBC 46 H 0-5 /HPF Urine Squamous Epithelial Cells Few <5 /hpf Urine Bacteria Mod H None Seen /hpf Urine Glucose 4+ H Normal mg/dL Lactic Acid Level 2.0 0.4-2.0 mmol/L Test 12/01/24 21:50 Range/Units White Blood Count 24.0 H 4.4-10.8 10^3/uL Red Blood Count 4.94 4.0-5.20 10^6/uL Hemoglobin 13.6 12.2-16.2 g/dL Hematocrit 40.5 36.0-46.0 % Mean Corpuscular Volume 82.1 80.0-100.0 fL Mean Corpuscular Hemoglobin 27.5 L 28.0-32.0 pg Mean Corpuscular Hemoglobin Concent 33.5 32.0-36.0 g/dL Red Cell Distribution Width 14.8 H 11.8-14.3 % Platelet Count 301 140-450 10^3/uL Mean Platelet Volume 7.8 6.9-10.8 fL Neutrophils (%) (Auto) 86.2 H 37.0-80.0 % Lymphocytes (%) (Auto) 7.4 L 10.0-50.0 % Monocytes (%) (Auto) 5.9 0.0-12.0 % Eosinophils (%) (Auto) 0.0 0.0-7.0 % Basophils (%) (Auto) 0.5 0.0-2.0 % Neutrophils # (Auto) 20.7 H 1.6-8.6 10 ^3/uL Lymphocytes # (Auto) 1.8 0.4-5.4 10 ^3/uL Monocytes # (Auto) 1.4 H 0-1.3 10 ^3/uL Eosinophils # (Auto) 0 0-0.8 10 ^3/uL Basophils # (Auto) 0.1 0-0.2 10 ^3/uL Nucleated Red Blood Cells 0.1 % Prothrombin Time 10.6 9.3-11.8 sec Prothrombin Time INR 1.00 0.9-1.15 Activated Partial Thromboplast Time 31.9 24.5-34.5 SEC Sodium Level 136 136-145 mmol/L Potassium Level 4.0 3.5-5.1 mmol/L Chloride Level 104 98-107 mmol/L Carbon Dioxide Level 21 20-31 mmol/L Anion Gap 11 5-15 Blood Urea Nitrogen 15 9-23 mg/dL Creatinine 0.93 0.550-1.02 mg/dL Glomerular Filtration Rate Calc 74 >90 mL/min BUN/Creatinine Ratio 16.1 10.0-20.0 Serum Glucose 190 H 74-106 mg/dL Calcium Level 9.3 8.7-10.4 mg/dL Total Bilirubin 0.9 0.2-1.0 mg/dL Aspartate Amino Transferase (AST) 15 13-40 U/L Alanine Aminotransferase (ALT) 13 7-40 U/L Alkaline Phosphatase 103 46-116 U/L Troponin I High Sensitivity 13 </=34 ng/L B-Type Natriuretic Peptide 114.76 0-100 pg/mL Total Protein 7.4 5.7-8.2 g/dL Albumin 4.6 3.2-4.8 g/dL Lipase 35 12-53 U/L Current Medications Medications (Trade) Dose Ordered Sig/Ross Route Start Time Stop Time Status Last Admin Acetaminophen (Tylenol Tablet) 650 mg ONCE ONCE PO 12/01/24 20:25 12/01/24 20:26 DC 12/01/24 20:34 Sodium Chloride 1,000 ml @ 1,000 mls/hr Q1H ONCE IV 12/01/24 21:45 12/01/24 22:44 DC 12/02/24 01:13 [place] [id number] Ph: [phone] DIAGNOSTIC IMAGING Diagnostic Imaging Report : [id number] Signed PATIENT: ROSALVA GAMBINO ACCT: [id number] UNIT: [id number] : 1970 LOC: ER ROOM / BED: / AGE / SEX: 54 / F ADM STATUS: REG ER SERVICE [id number] ORDERING PHYSICIAN: HUGO SELLERS DO PROCEDURE(s): ABPL - CT AB PEL WO CON-NO ORAL OR IV REASON: epig pain ORDER NUMBER(s): [id number], ACCESSION NUMBER(s): [id number] Exam: CT CT AB PEL WO CON-NO ORAL OR IV History: epig pain Comparison Study: None Technique: Multidetector spiral CT of the abdomen was performed from lung bases to pubic symphysis. Imaging was performed without IV contrast. Axial, coronal and sagittal multiplanar reformats were obtained from the axial data set by the technologist. Radiation Dose : 1. Abdomen/Pelvis: CTDIvol 14.11 mGy, DLP 3.92 mGy*cm. Findings: Evaluation of solid organs is limited due to lack of intravenous contrast use. Assessment is further limited by beam hardening and streak artifact from arms down positioning. Lower Chest: No acute findings. Left coronary stent. Mitral annular calcification. Liver: Elongated right lobe. Borderline hypoattenuation. Gallbladder and Biliary Tree: Unremarkable Pancreas: Moderate atrophy. Spleen: Unremarkable. Adrenal Glands: Unremarkable. Kidneys/Ureters: Mild hydroureteronephrosis and prominent perinephric stranding. The distal ureter is difficult to visualized, however a 7 mm calcification is seen along the expected path (coronal image 66/110). The left kidney and ureter are unremarkable. Bladder: Grossly unremarkable for degree of distention. Pelvic Organs: Absent uterus. Bowel: Normal caliber without wall thickening. No evidence of appendicitis. Moderate pancolonic stool burden. Vasculature: Mild atherosclerosis. Lymphadenopathy: No obvious adenopathy. Peritoneum: No ascites, free air, or fluid collection. Abdominal Wall: No significant hernia. Musculoskeletal: No acute findings. Mild degenerative changes. IMPRESSION: 1. Mild right hydroureteronephrosis with a suspected 7 mm stone in the distal ureter. Findings may represent obstructive uropathy and/or upper tract infection. 2. No other acute abdominopelvic abnormality within the exam limitations. Radiation optimization: All CT scans at this facility use at least one of these dose optimization techniques: automated exposure control mA and/or kV adjustment per patient size (includes targeted exams where dose is matched to clinical indication) or iterative reconstruction. ATED BY: BENJAMIN GUTIERREZ MD DICTATED DATE/TIME: 12/02/2442 SIGNED BY: BENJAMIN GUTIERREZ MD SIGNED DATE/TIME: 12/02/2442 CC: [place] [address] Ph: [phone] DIAGNOSTIC IMAGING Diagnostic Imaging Report : [id number] Signed PATIENT: ROSALVA GAMBINO ACCT: [id number] UNIT: [id number] : 1970 LOC: ER ROOM / BED: / AGE / SEX: 54 / F ADM STATUS: REG ER SERVICE 58 ORDERING PHYSICIAN: HUGO SELLERS DO PROCEDURE(s): CXRP - CHEST PORTABLE REASON: fever ORDER NUMBER(s): [id number], ACCESSION NUMBER(s): [id number] CHEST RADIOGRAPH Indication: fever Technique: 1 view Comparison: XY CHEST PORTABLE on DOS: 07/27/24, XY CHEST PORTABLE on DOS: 02/16/23, XY CHEST XRAY 1 VIEW on DOS: 09/13/22 FINDINGS: Lines and Tubes: None Lungs/Pleura: No focal consolidation, pleural effusion or pneumothorax. Cardiomediastinum: Heart size within normal limits for technique. Aortic atherosclerosis. Other: No acute osseous abnormality. IMPRESSION: 1. No acute cardiopulmonary abnormality. ATED BY: BENJAMIN GUTIERREZ MD DICTATED DATE/TIME: 12/02/2425 SIGNED BY: BENJAMIN GUTIERREZ MD SIGNED DATE/TIME: 12/02/2425 CC: [place] [address] Ph: [phone] DIAGNOSTIC IMAGING Diagnostic Imaging Report : [id number] Signed PATIENT: ROSALVA GAMBINO ACCT: [id number] UNIT: [id number] : 1970 LOC: ER ROOM / BED: / AGE / SEX: 54 / F ADM STATUS: REG ER SERVICE 38 ORDERING PHYSICIAN: HUGO SELLERS DO PROCEDURE(s): HWOCT - HEAD WITHOUT CONTRAST REASON: WEINSTEIN ORDER NUMBER(s): [id number], ACCESSION NUMBER(s): [id number] EXAM: CT HEAD WITHOUT CONTRAST INDICATION: WEINSTEIN TECHNIQUE: CT of the head without intravenous contrast. Radiation Dose : 1. Head: CT Dose: CTDI volume is 48.96 mGy. Dose-length product is 1.71 mGy*cm The dose indicators for CT are the volume Computed Tomography (CT) Dose Index (CTDIvol) and the Dose Length Product (DLP), and are measured in units of mGy and mGy-cm, respectively. These indicators are not patient dose, but values generated from the CT scanner acquisition factors. The report includes radiation exposure data for exposures received during this examination. COMPARISON: None FINDINGS: Brain: No acute hemorrhage, mass effect, or cerebral edema. Small right anterior periventricular white matter hypodensity appears near CSF attenuation, favored benign. CSF Spaces: Size and morphology within normal limits. Bones/Soft Tissues: No acute findings. Orbits/Sinuses/Mastoids: Unremarkable as visualized. IMPRESSION: 1. No acute intracranial abnormality. Radiation optimization: All CT scans at this facility use at least one of these dose optimization techniques: automated exposure control mA and/or kV adjustment per patient size (includes targeted exams where dose is matched to clinical indication) or iterative reconstruction. ATED BY: BENJAMIN GUTIERREZ MD DICTATED DATE/TIME: 12/01/242232 SIGNED BY: BENJAMIN GUTIERREZ MD SIGNED DATE/TIME: 12/01/242232 CC: Time of 1ST Reevaluation: 23:20 Reevaluation 1ST: Unchanged Time of 2ND Reevaluation: 03:44 (The case was discussed with the [facility] admitting team (HPI, physical exam, labs and diagnostic tests that were available at the time of disposition, ED course, treatment plan) on the phone. They agreed to transfer the patient to their service by [facility] for further evaluation and treatment. --lorena-. Authorization number is--[id number]) Reevaluation 2ND: Improved Patient Education/Counseling: Diagnosis, Treatment Family Education/Counseling: Diagnosis, Treatment Comments MDM: patient presented with the above HPI.---headache/fever---workup was initiated. patient was found with the above mentioned diagnosis. the following medications were ordered: please refer to order lists of meds and tests obtained by myself Dr. Sellers. Patient ED course and VS have been stabilized. Patient has been reassessed in the ED and remained in a stable condition. Pertinent incidental findings were discussed with the patient and/or family. Patient/family voices understanding and is agreeable with plan. Patient has been observed in the ED adequate length of time to insure improvement/stability. Escalation of care considered: Consideration of escalation to observation or admission Sepsis protocol was initiated with fluid restriction given her history of CHF. Patient was transferred per insurance requirement for further evaluation and treatment of her presentation. All the reports of any imaging studies that were ordered by myself were reviewed by myself. Departure 1 Departure Time of Disposition: 23:34 Impression: Primary Impression: Headache Additional Impressions: Sepsis Leukocytosis Fever UTI (urinary tract infection) Obstructive uropathy Hydroureteronephrosis Disposition: ADMITTED INPATIENT Admit to: Tele Condition: Guarded Discharged With: Self Critical Care Note Critical Care Time?: Yes (1 hr-critical care time only) Heart Score Heart Score: Heart Score Response (Comments) Value History Slightly Suspicious 0 EKG Normal 0 Age 45-64 1 Risk Factors >3 or Hx ASHD 2 Troponin Normal limit 0 Total 3 I personally scribed for HUGO SELLERS DO ([email or web address]) on 12/01/24 at 23:02. Electronically submitted by Griselda Stafford ([email or web address]). I personally scribed for HUGO SELLERS DO ([email or web address]) on 12/01/24 at 23:12. Electronically submitted by Griselda Stafford ([email or web address]). I personally scribed for HUGO SELLERS DO ([email or web address]) on 12/02/24 at 01:34. Electronically submitted by Griselda Stafford ([email or web address]). HUGO SELLERS DO Dec 01, 2024 23:02
[2024-12-01 23:42] LABS: Urine Protein, UAD Negative (Negative)
[2024-12-01 23:44] LABS: INR 1.0 (0.9-1.15); Partial Thromboplastin Time 31.9 SEC (24.5-34.5); Prothrombin Time 10.6 sec (9.3-11.8)
[2024-12-02] VITALS (7 sets, daily range): BP systolic 105–173; BP diastolic 59–99; PULSE 87–128; RESP 16–27; TEMP 97.7–103.1; O2SAT 96–97
--- NOTE | 2024-12-02 00:28 | DVH ---
CHEST RADIOGRAPH Indication: fever Technique: 1 view Comparison: XY CHEST PORTABLE on DOS: 07/27/24, XY CHEST PORTABLE on DOS: 02/16/23, XY CHEST XRAY 1 EW on DOS: 09/13/22 FINDINGS: Lines and Tubes: None Lungs/Pleura: No focal consolidation, pleural effusion or pneumothorax. Cardiomediastinum: Heart size within normal limits for technique. Aortic atherosclerosis. Other: No acute osseous abnormality. IMPRESSION: 1. No acute cardiopulmonary abnormality.
--- NOTE | 2024-12-02 00:46 | DVH ---
Exam: CT CT AB PEL WO CON-NO ORAL OR IV History: epig pain Comparison Study: None Technique: Multidetector spiral CT of the abdomen was performed from lung bases to pubic symphysis. I maging was performed without IV contrast. Axial, coronal and sagittal multiplanar reformats were obta ined from the axial data set by the technologist. Radiation Dose : 1. Abdomen/Pelvis: CTDIvol 14.11 mGy, DLP 3.92 mGy*cm. Findings: Evaluation of solid organs is limited due to lack of intravenous contrast use. Assessment is further limited by beam hardening and streak artifact from arms down positioning. Lower Chest: No acute findings. Left coronary stent. Mitral annular calcification. Liver: Elongated right lobe. Borderline hypoattenuation. Gallbladder and Biliary Tree: Unremarkable Pancreas: Moderate atrophy. Spleen: Unremarkable. Adrenal Glands: Unremarkable. Kidneys/Ureters: Mild hydroureteronephrosis and prominent perinephric stranding. The distal ureter is difficult to visualized, however a 7 mm calcification is seen along the expected path (coronal image 66/110). The left kidney and ureter are unremarkable. Bladder: Grossly unremarkable for degree of distention. Pelvic Organs: Absent uterus. Bowel: Normal caliber without wall thickening. No evidence of appendicitis. Moderate pancolonic stool burden. Vasculature: Mild atherosclerosis. Lymphadenopathy: No obvious adenopathy. Peritoneum: No ascites, free air, or fluid collection. Abdominal Wall: No significant hernia. Musculoskeletal: No acute findings. Mild degenerative changes. IMPRESSION: 1. Mild right hydroureteronephrosis with a suspected 7 mm stone in the distal ureter. Findings may r epresent obstructive uropathy and/or upper tract infection. 2. No other acute abdominopelvic abnormality within the exam limitations. Radiation optimization: All CT scans at this facility use at least one of these dose optimization tiara hniques: automated exposure control mA and/or kV adjustment per patient size (includes targeted exam s where dose is matched to clinical indication) or iterative reconstruction.
[2024-12-02] MEDS: SODIUM CHLORIDE 0.9% 1,000 ML IV ONE ×2 (01:13→12:15)
[2024-12-02] MEDS: CEFEPIME 1GM/ 50ML 50 ML IV SCH (08:38)
[2024-12-02] MEDS: TAMSULOSIN HYDROCHLORIDE 0.4 MG CAP PO ONE (09:54)
[2024-12-02] MEDS: cefTRIAXone 1GM/50ML D5W 50 ML IV ONE (09:54)
[2024-12-02 11:21] LABS: COVID19 ANTIGEN SOFIA FIA NEGATIVE (NEGATIVE)
[2024-12-02] MEDS ORDERED: DOCUSATE SOD 100 MG CAP PO PRN (12:00)
[2024-12-02] MEDS ORDERED: DEXTROSE (50%) 50ML SYRG IV PRN (12:00)
[2024-12-02] MEDS ORDERED: CLOP75TA70 PO (12:02)
[2024-12-02] MEDS ORDERED: EMPA1TAB3 PO (12:02)
[2024-12-02] MEDS ORDERED: ISOS1TAB28 PO (12:02)
[2024-12-02] MEDS ORDERED: SPIR25TA8 PO (12:02)
[2024-12-02] MEDS ORDERED: ATOR-47 PO (12:02)
[2024-12-02] MEDS ORDERED: CARV3.1240 PO (12:02)
[2024-12-02] MEDS ORDERED: METF-1145 PO (12:02)
[2024-12-02] MEDS ORDERED: AMLO1TAB23 PO (12:02)
[2024-12-02] MEDS ORDERED: ASPI81CH49 PO (12:02)
[2024-12-02] MEDS ORDERED: ENAL1TAB47 PO (12:02)
--- NOTE | 2024-12-02 12:17 | DVHHP2 ---
History of Present Illness Reason for Visit: Headache History of Present Illness Arianna Bowens is a 54-year-old female with past medical history of hypertension, hyperlipidemia, HI, CHF, and diabetes who came to the hospital for complaints of a headache. Patient sates she woke up yesterday about 0900 with a severe headache. About 1600 she began having fevers, body aches and chills. She tried to treat her symptoms at home with over the counter mediations but she continued to worsen prompting her to come to the hospital. Cardiovascular: CHF, HTN, HI, hyperipidemia, Other (PTCA with cardiac stent) Endocrine: Diabetes Past Surgical History: (x 1), Other (PTCA with cardiac stent) Smoke: No ALCOHOL: none Drugs: None Lives: with Family Domestic Violence: Neg Review of Systems Constitutional: Yes: Fever, Chills, Sweats, Weakness, Malaise, Other (headache) Eyes: No: Pain, Vision change, Conjunctivae inflammation, Eyelid inflammation, Other, Redness ENT: No: Ear pain, Ear discharge, Nose pain, Nose discharge, Nose congestion, Mouth pain, Mouth swelling, Throat pain, Throat swelling, Other Respiratory: No: Cough, Dry, Shortness of breath, SOB with excertion, Wheezing, Hemoptysis, Pleuritic Pain, Sputum, Wheezing, Other Cardiovascular: No: Chest Pain, Palpitations, Orthopnea, Paroxysmal Noc. Dyspnea, Edema, Lt Headedness, Other Gastrointestinal: No: Nausea, Vomiting, Abdominal Pain, Diarrhea, Constipation, Melena, Hematochezia, Other Genitourinary: No Dysuria, No Frequency, No Incontinence, No Hematuria, No Retention, No Other Musculoskeletal: No: other, neck pain, shoulder pain, arm pain, back pain, hand pain, leg pain, foot pain Skin: No: Rash, Lesions, Jaundice, Bruising, Other Neurological: No: Weakness, Numbness, Incoordination, Change in speech, Confusion, Seizures, Other Allergies: Coded Allergies: NO KNOWN ALLERGIES (Unverified , 09/20/14) Medications Current Medications Medications Dose Ordered Sig/Ross Route Start Time Stop Time Status Last Admin Dose Admin Cefepime HCl 50 ml @ 12.5 mls/hr Q8HR IV 12/02/24 06:00 Sodium Chloride 10 ml Q8HR IV 12/02/24 14:00 UNV Acetaminophen/ Hydrocodone Bitart 1 tab Q4HP PRN PO 12/02/24 12:00 UNV Ondansetron HCl 4 mg Q4HP PRN IV 12/02/24 12:00 UNV Docusate Sodium 100 mg BIDPRN PRN PO 12/02/24 12:00 UNV Acetaminophen 650 mg Q6HP PRN PO 12/02/24 12:00 UNV Diagnostic Test (Pha) 1 strip ACHS 12/02/24 17:00 UNV Insulin Human Regular HS SC 12/02/24 22:00 UNV Insulin Human Regular AC SC 12/02/24 17:00 UNV Dextrose 50 ml UD PRN IV 12/02/24 12:00 UNV Exam Vital Signs Vital Signs Date Time Temp Pulse Resp B/P (MAP) Pulse Ox O2 Delivery O2 Flow Rate FiO2 12/02/24 08:28 92 27 97 Room Air* 0 21 12/02/24 08:28 100.0 134/72 (92) 100.0 General Appearance: Alert, Oriented X3, Cooperative, mild distress, Other (headache and weakness) HEENT: Atraumatic, PERRLA Respiratory: Clear to auscultation, Normal air movement Cardiovascular: Regular rate, Normal S1, Normal S2 Abdominal: Normal bowel sounds, Soft, No tenderness Extremities: No clubbing, No cyanosis, No edema, Normal pulses, No tendern ess/swelling Skin: No rashes, No breakdown, No significant lesion Neuro: Normal gait, Normal speech, Strength at 5/5 X4 ext, Normal tone Psych/Mental Status: Mental status NL, Mood NL Labs/Xrays Labs Test 12/02/24 00:20 12/01/24 23:20 12/01/24 23:07 12/01/24 21:50 Range/Units Troponin I High Sensitivity 7 </=34 ng/L Urine Color Colorless Yellow Urine Clarity Turbid H Clear Urine pH 5.5 5.0-9.0 Urine Specific [place] 1.025 1.001-1.035 Urine Protein Negative Negative Urine Ketones 1+ H Negative Urine Blood 2+ H Negative /uL Urine Nitrite Negative Negative Urine Bilirubin Negative Negative Urine Urobilinogen Normal Negative mg/dL Urine Leukocyte Esterase 2+ Negative /uL Urine RBC 5 0 - 4 /hpf Urine Microscopic WBC 46 H 0-5 /HPF Urine Squamous Epithelial Cells Few <5 /hpf Urine Bacteria Mod H None Seen /hpf Urine Glucose 4+ H Normal mg/dL Lactic Acid Level 2.0 0.4-2.0 mmol/L White Blood Count 24.0 H 4.4-10.8 10^3/uL Red Blood Count 4.94 4.0-5.20 10^6/uL Hemoglobin 13.6 12.2-16.2 g/dL Hematocrit 40.5 36.0-46.0 % Mean Corpuscular Volume 82.1 80.0-100.0 fL Mean Corpuscular Hemoglobin 27.5 L 28.0-32.0 pg Mean Corpuscular Hemoglobin Concent 33.5 32.0-36.0 g/dL Red Cell Distribution Width 14.8 H 11.8-14.3 % Platelet Count 301 140-450 10^3/uL Mean Platelet Volume 7.8 6.9-10.8 fL Neutrophils (%) (Auto) 86.2 H 37.0-80.0 % Lymphocytes (%) (Auto) 7.4 L 10.0-50.0 % Monocytes (%) (Auto) 5.9 0.0-12.0 % Eosinophils (%) (Auto) 0.0 0.0-7.0 % Basophils (%) (Auto) 0.5 0.0-2.0 % Neutrophils # (Auto) 20.7 H 1.6-8.6 10 ^3/uL Lymphocytes # (Auto) 1.8 0.4-5.4 10 ^3/uL Monocytes # (Auto) 1.4 H 0-1.3 10 ^3/uL Eosinophils # (Auto) 0 0-0.8 10 ^3/uL Basophils # (Auto) 0.1 0-0.2 10 ^3/uL Nucleated Red Blood Cells 0.1 % Prothrombin Time 10.6 9.3-11.8 sec Prothrombin Time INR 1.00 0.9-1.15 Activated Partial Thromboplast Time 31.9 24.5-34.5 SEC Sodium Level 136 136-145 mmol/L Potassium Level 4.0 3.5-5.1 mmol/L Chloride Level 104 98-107 mmol/L Carbon Dioxide Level 21 20-31 mmol/L Anion Gap 11 5-15 Blood Urea Nitrogen 15 9-23 mg/dL Creatinine 0.93 0.550-1.02 mg/dL Glomerular Filtration Rate Calc 74 >90 mL/min BUN/Creatinine Ratio 16.1 10.0-20.0 Serum Glucose 190 H 74-106 mg/dL Calcium Level 9.3 8.7-10.4 mg/dL Total Bilirubin 0.9 0.2-1.0 mg/dL Aspartate Amino Transferase (AST) 15 13-40 U/L Alanine Aminotransferase (ALT) 13 7-40 U/L Alkaline Phosphatase 103 46-116 U/L B-Type Natriuretic Peptide 114.76 0-100 pg/mL Total Protein 7.4 5.7-8.2 g/dL Albumin 4.6 3.2-4.8 g/dL Lipase 35 12-53 U/L Test 12/01/24 10:40 Range/Units Influenza Type A Antigen Negative Negative Influenza Type B Antigen Negative Negative SARS-CoV-2 Antigen (Rapid) Negative NEGATIVE Microbiology Date/Time Source Procedure Growth Status 12/01/24 23:11 Blood Blood Culture - Preliminary Resulted EXAM: CT HEAD WITHOUT CONTRAST FINDINGS: Brain: No acute hemorrhage, mass effect, or cerebral edema. Small right anterior periventricular white matter hypodensity appears near CSF attenuation, favored benign. CSF Spaces: Size and morphology within normal limits. Bones/Soft Tissues: No acute findings. Orbits/Sinuses/Mastoids: Unremarkable as visualized. IMPRESSION: 1. No acute intracranial abnormality. CHEST RADIOGRAPH FINDINGS: Lines and Tubes: None Lungs/Pleura: No focal consolidation, pleural effusion or pneumothorax. Cardiomediastinum: Heart size within normal limits for technique. Aortic atherosclerosis. Other: No acute osseous abnormality. IMPRESSION: 1. No acute cardiopulmonary abnormality. Exam: CT CT AB PEL WO CON-NO ORAL OR IV Findings: Evaluation of solid organs is limited due to lack of intravenous contrast use. Assessment is further limited by beam hardening and streak artifact from arms down positioning. Lower Chest: No acute findings. Left coronary stent. Mitral annular calcification. Liver: Elongated right lobe. Borderline hypoattenuation. Gallbladder and Biliary Tree: Unremarkable Pancreas: Moderate atrophy. Spleen: Unremarkable. Adrenal Glands: Unremarkable. Kidneys/Ureters: Mild hydroureteronephrosis and prominent perinephric stranding. The distal ureter is difficult to visualized, however a 7 mm calcification is seen along the expected path (coronal image 66/110). The left kidney and ureter are unremarkable. Bladder: Grossly unremarkable for degree of distention. Pelvic Organs: Absent uterus. Bowel: Normal caliber without wall thickening. No evidence of appendicitis. Moderate pancolonic stool burden. Vasculature: Mild atherosclerosis. Lymphadenopathy: No obvious adenopathy. Peritoneum: No ascites, free air, or fluid collection. Abdominal Wall: No significant hernia. Musculoskeletal: No acute findings. Mild degenerative changes. IMPRESSION: 1. Mild right hydroureteronephrosis with a suspected 7 mm stone in the distal ureter. Findings may represent obstructive uropathy and/or upper tract infection. 2. No other acute abdominopelvic abnormality within the exam limitations. SEPSIS Sepsis Screen Date sepsis recognized/suspect: Dec 02, 2024 Time Sepsis recognized/suspect: 827 Recent Procedure: No On Antibiotic Therapy: Yes Respiratory Rate >20: Yes Heart Rate >90: Yes Temp<36 C (96.8 F) or >38.3 C: No SBP <90 or MAP <65 mmHG: No New Acute Mental Status Change: No Is the patient on CPAP, BIPAP,: No Physician Orders Admit (12/02/24 11:56) Code Status (12/02/24 11:56) Sodium Chloride Lock (Saline Lock Ns) (12/02/24 14:00) Hydrocodone-Acet 5/325mg Tab ([place] 5/32 (12/02/24 12:00) Ondansetron Hcl (Zofran) (12/02/24 12:00) Docusate Sodium Capsule (Colace Capsule) (12/02/24 12:00) Complete Blood Count (12/03/24 04:00) Comprehensive Metabolic Panel (12/03/24 04:00) Cardiac Diet-2gna,Lofat,Lochol (12/02/24 Lunch) Condition: Serious (12/02/24 11:56) Acetaminophen Tablet (Tylenol Tablet) (12/02/24 12:00) Glucose Blood (Accu-Chek Comfort Curve T (12/02/24 17:00) Insulin R (Human) (Insulin R) (12/02/24 22:00) Insulin R (Human) (Insulin R) (12/02/24 17:00) Dextrose 50% Syringe (12/02/24 12:00) Vital Signs Date Time Temp Pulse Resp B/P (MAP) Pulse Ox O2 Delivery O2 Flow Rate FiO2 12/02/24 08:28 92 27 97 Room Air* 0 21 12/02/24 08:28 100.0 92 27 134/72 (92) 97 100.0 12/02/24 04:59 99.6 95 12 123/73 (90) 95 99.6 Medications Medications Dose Ordered Sig/Ross Route Start Time Stop Time Status Last Admin Dose Admin Ceftriaxone Sodium 50 ml @ 100 mls/hr ONCE ONCE IV 12/02/24 02:45 12/02/24 03:14 DC 12/02/24 09:54 100 MLS/HR Tamsulosin HCl 0.4 mg ONCE ONCE PO 12/02/24 02:45 12/02/24 02:46 DC 12/02/24 09:54 0.4 MG Assessment/Plan Assessment/Plan Assessment: Hydroureteronephrosis, Obstructive uropathy, Urosepsis, Leukocytosis, Hyperglycemia, Uncontrolled diabetes, CHF, Hypertension, Hyperlipidemia, Plan: Admit to Med-Surg, IV antibiotics, IV hydration, Accu checks Q AC&HS with sliding scale, A1c, Start Flomax, Home medications reconciled, Plan discussed with: Patient My Orders Orders - CLAUDE CANDELARIO PRINCIPAL MECHANICAL ENGINEER Procedure Category Date Status Time Admit ADMIT 12/02/24 Transmitted 11:56 Code Status CODE 12/02/24 Transmitted 11:56 Sodium Chloride Lock PHA 12/02/24 Logged (Saline Lock Ns) 14:00 Hydrocodone-Acet PHA 12/02/24 Logged 5/325mg Tab ([place] 12:00 Ondansetron Hcl PHA 12/02/24 Logged (Zofran) 12:00 Docusate Sodium PHA 12/02/24 Logged Capsule (Colace 12:00 Complete Blood Count LAB 12/03/24 Verified 04:00 Comprehensive LAB 12/03/24 Verified Metabolic Panel 04:00 Cardiac DIET 12/02/24 Transmitted Diet-2gna,Lofat,Lochol Lunch Condition: Serious CRISTIANE 12/02/24 In Process 11:56 Acetaminophen Tablet PHA 12/02/24 Logged (Tylenol Tablet) 12:00 Glucose Blood PHA 12/02/24 Logged (Accu-Chek Comfort 17:00 Insulin R (Human) PHA 12/02/24 Logged (Insulin R) 22:00 Insulin R (Human) PHA 12/02/24 Logged (Insulin R) 17:00 Dextrose 50% Syringe PHA 12/02/24 Logged 12:00 Date of Service: Dec 02, 2024 Billing Provider: CLAUDE CANDELARIO Common Visit Codes: [id number] INP/OBS CARE (MOD) CLAUDE CANDELARIO Dec 02, 2024 12:17
[2024-12-02] MEDS: ACETAMINOPHEN 325 MG TAB PO PRN (13:10)
[2024-12-02] MEDS: SODIUM CHLOR 0.9% PF (SALINE LOCK) 10ML VIAL/SYR IV SCH (13:34)
[2024-12-02] MEDS ORDERED: ENAL1TAB42 PO (13:39)
[2024-12-02] MEDS: SPIRONOLACTONE 25 MG TAB PO ONE (16:00)
[2024-12-02] MEDS: TAMSULOSIN HYDROCHLORIDE 0.4 MG CAP PO SCH (17:34)
[2024-12-02] MEDS: InsuLIN REG 1unit/0.01ml Soln (100units/ml) SC SCH ×2 (17:34→22:06)
[2024-12-02] MEDS: ACCU-CHEK COMFORT CURVE STRIP VI SCH (17:34)
[2024-12-02] MEDS: ENALAPRIL MALEATE 10 MG TAB PO SCH (22:00)
[2024-12-02] MEDS: CARVEDILOL 3.125 MG TAB PO SCH (22:00)
[2024-12-02] MEDS: ATORVASTATIN 20 MG TAB PO SCH (22:03)
[2024-12-02] MEDS: ISOSORBIDE MONONITRATE ER 60 MG TAB PO SCH (22:04)
[2024-12-03] VITALS (8 sets, daily range): BP systolic 100–134; BP diastolic 70–82; PULSE 86–114; RESP 16–20; TEMP 98.3–101.3; O2SAT 94–98
[2024-12-03 05:46] LABS: Hematocrit 39.4 % (36.0-46.0); Hemoglobin 12.5 g/dL (12.2-16.2); Mean Corpuscular Hemoglobin 27.5 pg (28.0-32.0); Mean Corpuscular Volume 86.5 fL (80.0-100.0); Nucleated Red Blood Cells % 0.0 %
[2024-12-03 06:10] LABS: Alanine Aminotransferase 10 U/L (7-40); Albumin 4.0 g/dL (3.2-4.8); Alkaline Phosphatase 98 U/L (46-116); Anion Gap 18 (5-15); BUN/Creatinine Ratio 16.2 (10.0-20.0); Bilirubin, Total 0.8 mg/dL (0.2-1.0); Blood Urea Nitrogen 18 mg/dL (9-23); Calcium 9.2 mg/dL (8.7-10.4); Chloride 104 mmol/L (98-107); Potassium 3.9 mmol/L (3.5-5.1); Total Protein 7.1 g/dL (5.7-8.2)
[2024-12-03 06:11] LABS: Carbon Dioxide 12 mmol/L (20-31); Glucose 195 mg/dL (74-106); Sodium 134 mmol/L (136-145)
[2024-12-03] MEDS: CLOPIDOGREL BISULFATE 75 MG TAB PO SCH (08:55)
[2024-12-03] MEDS: SPIRONOLACTONE 25 MG TAB PO SCH (08:56)
[2024-12-03] MEDS ORDERED: ENALAPRIL MALEATE 10 MG TAB PO SCH (10:00)
[2024-12-03] MEDS ORDERED: EMPAGLIFLOZIN 10 MG TAB PO SCH (10:00)
--- NOTE | 2024-12-03 12:31 | DVHPN2 ---
Subjective The patient is seen and examined at bedside. The patient wanted to know what happened to her. Complain of abdominal pain with intractable nausea and vomiting. Reviewed: Care Plan, H&P, Labs, Medications, Previous Orders Changes from previous H/P or p: No Changes Eyes: No Pain, No Vision change, No Conjunctivae inflammation, No Eyelid inflammation, No Other, No Redness ENT: No Ear pain, No Ear discharge, No Nose pain, No Nose discharge, No Nose congestion, No Mouth pain, No Mouth swelling, No Throat pain, No Throat swelling, No Other Cardiovascular: No Chest Pain, No Palpitations, No Orthopnea, No Paroxysmal Noc. Dyspnea, No Edema, No Lt Headedness, No Other Respiratory: No Cough, No Dry, No Shortness of breath, No SOB with excertion, No Wheezing, No Hemoptysis, No Pleuritic Pain, No Sputum, No Other Gastrointestinal: No Nausea, No Vomiting, No Abdominal Pain, No Diarrhea, No Constipation, No Melena, No Hematochezia, No Other Genitourinary: No Dysuria, No Frequency, No Incontinence, No Hematuria, No Retention, No Other Musculoskeletal: No other, No neck pain, No shoulder pain, No arm pain, No back pain, No hand pain, No leg pain, No foot pain Skin: No Rash, No Lesions, No Jaundice, No Bruising, No Other Objective Vitals Vital Signs Date Time Temp Pulse Resp B/P (MAP) Pulse Ox O2 Delivery O2 Flow Rate FiO2 12/03/24 09:00 99.0 86 20 103/74 (84) 95 99.0 12/03/24 08:00 Room Air* 0 21 Intake/Output Intake and Output 12/03/24 07:00 Intake Total 1700 ml Balance 1700 ml Intake Oral 500 ml IV Total 1200 ml # Voids 2 General Appearance: Alert, Oriented X3, Cooperative, No acute distress HEENT: Atraumatic, PERRLA, EOMI, Mucous membr. moist/pink Neck: Supple Lungs: Clear to auscultation, Normal air movement Cardiovascular: Regular rate, Normal S1, Normal S2, No murmurs, Gallops, Rubs Abdomen: Normal bowel sounds, Soft, No tenderness Neuro: Cranial nerves 3-12 NL Psych/Mental Status: Mental status NL Medications Current Medications Medications Dose Ordered Sig/Ross Route Start Time Stop Time Status Last Admin Dose Admin Cefepime HCl 50 ml @ 12.5 mls/hr Q8HR IV 12/02/24 06:00 12/03/24 06:09 12.5 MLS/HR Sodium Chloride 10 ml Q8HR IV 12/02/24 14:00 12/03/24 06:09 10 ML Acetaminophen/ Hydrocodone Bitart 1 tab Q4HP PRN PO 12/02/24 12:00 Ondansetron HCl 4 mg Q4HP PRN IV 12/02/24 12:00 Docusate Sodium 100 mg BIDPRN PRN PO 12/02/24 12:00 Acetaminophen 650 mg Q6HP PRN PO 12/02/24 12:00 12/02/24 21:26 650 MG Diagnostic Test (Pha) 1 strip ACHS 12/02/24 17:00 12/03/24 10:40 1 STRIP Insulin Human Regular HS SC 12/02/24 22:00 12/02/24 22:06 4 UNITS Insulin Human Regular AC SC 12/02/24 17:00 12/03/24 06:15 6 UNITS Dextrose 50 ml UD PRN IV 12/02/24 12:00 Tamsulosin HCl 0.4 mg QPM PO 12/02/24 18:00 12/02/24 17:34 0.4 MG Carvedilol 3.125 mg BID PO 12/02/24 22:00 Clopidogrel Bisulfate 75 mg DAILY PO 12/03/24 10:00 12/03/24 08:55 75 MG Spironolactone 25 mg DAILY PO 12/03/24 10:00 12/03/24 08:56 25 MG Amlodipine Besylate 10 mg DAILY PO 12/03/24 10:00 Aspirin 81 mg DAILY PO 12/03/24 10:00 12/03/24 08:56 81 MG Atorvastatin Calcium 80 mg HS PO 12/02/24 22:00 12/02/24 22:03 80 MG Empaglifozin 12.5 mg DAILY PO 12/03/24 10:00 Hold Isosorbide Mononitrate 60 mg BID PO 12/02/24 22:00 12/03/24 08:55 60 MG Enalapril Maleate 10 mg Q12HR PO 12/02/24 22:00 Laboratory Results Laboratory Tests 12/03/24 05:29 Chemistry Test 12/03/24 05:29 Albumin 4.0 g/dL (3.2-4.8) Calcium Level 9.2 mg/dL (8.7-10.4) Total Protein 7.1 g/dL (5.7-8.2) LFT Test 12/03/24 05:29 Alanine Aminotransferase (ALT) 10 U/L (7-40) Alkaline Phosphatase 98 U/L (46-116) Aspartate Amino Transferase (AST) 12 U/L (13-40) L Total Bilirubin 0.8 mg/dL (0.2-1.0) HgA1c, TSH Test 12/03/24 05:29 Hemoglobin A1c 12.2 % A1C (<5.7) H Urinalysis Test 12/01/24 23:20 Urine Color Colorless (Yellow) Urine Clarity Turbid (Clear) H Urine pH 5.5 (5.0-9.0) Urine Specific [place] 1.025 (1.001-1.035) Urine Protein Negative (Negative) Urine Ketones 1+ (Negative) H Urine Blood 2+ /uL (Negative) H Urine Nitrite Negative (Negative) Urine Bilirubin Negative (Negative) Urine Urobilinogen Normal mg/dL (Negative) Urine Leukocyte Esterase 2+ /uL (Negative) Urine RBC 5 /hpf (0 - 4) Urine Microscopic WBC 46 /HPF (0-5) H Urine Squamous Epithelial Cells Few /hpf (<5) Urine Bacteria Mod /hpf (None Seen) H Urine Glucose 4+ mg/dL (Normal) H Microbiology Microbiology Date/Time Source Procedure Growth Status 12/01/24 23:11 Blood Blood Culture - Preliminary Resulted Labs and/or images reviewed: Labs reviewed by me Assessment/Plan Assessment/Plan Hydroureteronephrosis, Obstructive uropathy, Sepsis due to UTI Leukocytosis, Hyperglycemia, Uncontrolled diabetes, CHF, Hypertension, Hyperlipidemia, Continuing current management. Explained to the patient that she had infection in the kidney and also had obstructive uropathy caused [facility] Waiting for urologist to see the patient. Continuing IV antibiotic. Continuing with Zofran PRN for nausea and vomiting. Continuing with sliding scale insulin. Plan discussed with: Patient Date of Service: Dec 03, 2024 Billing Provider: WILFRID ANTONIO MD Common Visit Codes: [id number] INP/OBS CARE(HIGH) WILFRID ANTONIO MD Dec 03, 2024 12:31
[2024-12-03] MEDS: ONDANSETRON HCL 4 MG/2 ML VIAL IV PRN (23:29)
[2024-12-03] MEDS: HYDROcodone-ACET 5/325MG TAB PO PRN (23:29)
[2024-12-04] VITALS (7 sets, daily range): BP systolic 96–138; BP diastolic 63–83; PULSE 69–103; RESP 16–20; TEMP 98.2–101.3; O2SAT 90–95
--- NOTE | 2024-12-04 12:17 | DVHPN2 ---
Subjective The patient is seen and examined at bedside. The patient wanted to know what happened to her. Complain of abdominal pain with intractable nausea and vomiting. Reviewed: Care Plan, H&P, Labs, Medications, Previous Orders Eyes: No Pain, No Vision change, No Conjunctivae inflammation, No Eyelid inflammation, No Other, No Redness ENT: No Ear pain, No Ear discharge, No Nose pain, No Nose discharge, No Nose congestion, No Mouth pain, No Mouth swelling, No Throat pain, No Throat swelling, No Other Cardiovascular: No Chest Pain, No Palpitations, No Orthopnea, No Paroxysmal Noc. Dyspnea, No Edema, No Lt Headedness, No Other Respiratory: No Cough, No Dry, No Shortness of breath, No SOB with excertion, No Wheezing, No Hemoptysis, No Pleuritic Pain, No Sputum, No Other Gastrointestinal: No Nausea, No Vomiting, No Abdominal Pain, No Diarrhea, No Constipation, No Melena, No Hematochezia, No Other Genitourinary: No Dysuria, No Frequency, No Incontinence, No Hematuria, No Retention, No Other Musculoskeletal: No other, No neck pain, No shoulder pain, No arm pain, No back pain, No hand pain, No leg pain, No foot pain Skin: No Rash, No Lesions, No Jaundice, No Bruising, No Other Objective Vitals Vital Signs Date Time Temp Pulse Resp B/P (MAP) Pulse Ox O2 Delivery O2 Flow Rate FiO2 12/04/24 09:00 98.3 69 18 105/69 (81) 93 98.3 12/04/24 08:00 Room Air* 0 21 Intake/Output Intake and Output 12/04/24 07:00 Intake Total 2250 ml Output Total 2000 ml Balance 250 ml Intake Oral 2150 ml IV Total 100 ml Output Urine Total 2000 ml # Voids 2 General Appearance: Alert, Oriented X3, Cooperative, No acute distress HEENT: Atraumatic, PERRLA, EOMI, Mucous membr. moist/pink Neck: Supple Lungs: Clear to auscultation, Normal air movement Cardiovascular: Regular rate, Normal S1, Normal S2, No murmurs, Gallops, Rubs Abdomen: Normal bowel sounds, Soft, No tenderness Neuro: Cranial nerves 3-12 NL Psych/Mental Status: Mental status NL Medications Current Medications Medications Dose Ordered Sig/Ross Route Start Time Stop Time Status Last Admin Dose Admin Cefepime HCl 50 ml @ 12.5 mls/hr Q8HR IV 12/02/24 06:00 12/04/24 06:31 12.5 MLS/HR Sodium Chloride 10 ml Q8HR IV 12/02/24 14:00 12/04/24 06:26 10 ML Acetaminophen/ Hydrocodone Bitart 1 tab Q4HP PRN PO 12/02/24 12:00 12/03/24 23:29 1 TAB Ondansetron HCl 4 mg Q4HP PRN IV 12/02/24 12:00 12/03/24 23:29 4 MG Docusate Sodium 100 mg BIDPRN PRN PO 12/02/24 12:00 Acetaminophen 650 mg Q6HP PRN PO 12/02/24 12:00 12/03/24 13:24 650 MG Diagnostic Test (Pha) 1 strip ACHS 12/02/24 17:00 12/04/24 06:33 1 STRIP Insulin Human Regular HS SC 12/02/24 22:00 12/03/24 21:41 6 UNITS Insulin Human Regular AC SC 12/02/24 17:00 12/04/24 06:28 9 UNITS Dextrose 50 ml UD PRN IV 12/02/24 12:00 Tamsulosin HCl 0.4 mg QPM PO 12/02/24 18:00 12/03/24 17:36 0.4 MG Carvedilol 3.125 mg BID PO 12/02/24 22:00 12/03/24 21:44 3.125 MG Clopidogrel Bisulfate 75 mg DAILY PO 12/03/24 10:00 12/04/24 08:52 75 MG Spironolactone 25 mg DAILY PO 12/03/24 10:00 12/04/24 08:52 25 MG Amlodipine Besylate 10 mg DAILY PO 12/03/24 10:00 Aspirin 81 mg DAILY PO 12/03/24 10:00 12/04/24 08:52 81 MG Atorvastatin Calcium 80 mg HS PO 12/02/24 22:00 12/03/24 21:36 80 MG Empaglifozin 12.5 mg DAILY PO 12/03/24 10:00 Hold Isosorbide Mononitrate 60 mg BID PO 12/02/24 22:00 12/04/24 08:53 60 MG Enalapril Maleate 10 mg Q12HR PO 12/02/24 22:00 12/03/24 21:36 10 MG Laboratory Results Laboratory Tests 12/03/24 05:29 Urinalysis Test 12/01/24 23:20 Urine Color Colorless (Yellow) Urine Clarity Turbid (Clear) H Urine pH 5.5 (5.0-9.0) Urine Specific [place] 1.025 (1.001-1.035) Urine Protein Negative (Negative) Urine Ketones 1+ (Negative) H Urine Blood 2+ /uL (Negative) H Urine Nitrite Negative (Negative) Urine Bilirubin Negative (Negative) Urine Urobilinogen Normal mg/dL (Negative) Urine Leukocyte Esterase 2+ /uL (Negative) Urine RBC 5 /hpf (0 - 4) Urine Microscopic WBC 46 /HPF (0-5) H Urine Squamous Epithelial Cells Few /hpf (<5) Urine Bacteria Mod /hpf (None Seen) H Urine Glucose 4+ mg/dL (Normal) H Microbiology Microbiology Date/Time Source Procedure Growth Status 12/01/24 23:11 Blood Blood Culture - Preliminary Resulted 12/01/24 21:39 Voided Urine Urine Culture - Preliminary Resulted Assessment/Plan Assessment/Plan Hydroureteronephrosis, Obstructive uropathy, Sepsis due to UTI Leukocytosis, Hyperglycemia, Uncontrolled diabetes, CHF, Hypertension, Hyperlipidemia, Continuing current management. Explained to the patient that she had infection in the kidney and also had obstructive uropathy caused by a stone that is stuck in her you [place] area. Waiting for urologist to see the patient. Continuing IV antibiotic. Continuing with Zofran PRN for nausea and vomiting. Continuing with sliding scale insulin. My Orders Orders - WILFRID ANTONIO MD Procedure Category Date Status Time * Urology Consult CONS 12/04/24 Transmitted 11:38 * General Repairer CONS 12/04/24 Transmitted Consult WILRFID ANTONIO MD Dec 04, 2024 12:17
--- NOTE | 2024-12-04 12:18 | DVHDS2 ---
Discharge Summary Date of Admission Dec 02, 2024 at 11:56 Date of Discharge: Dec 04, 2024 Admitting Diagnosis Hydroureteronephrosis, Obstructive uropathy, Sepsis due to UTI Leukocytosis, Hyperglycemia, Uncontrolled diabetes, CHF, Hypertension, Hyperlipidemia, Labs/Diagnostic Data: Laboratory Results Test 12/04/24 05:49 12/03/24 05:29 12/02/24 00:20 12/01/24 23:20 POC Glucose 277 mg/dl (70-106) White Blood Count 22.8 10^3/uL (4.4-10.8) Red Blood Count 4.55 10^6/uL (4.0-5.20) Hemoglobin 12.5 g/dL (12.2-16.2) Hematocrit 39.4 % (36.0-46.0) Mean Corpuscular Volume 86.5 fL (80.0-100.0) Mean Corpuscular Hemoglobin 27.5 pg (28.0-32.0) Mean Corpuscular Hemoglobin Concent 31.8 g/dL (32.0-36.0) Red Cell Distribution Width 15.9 % (11.8-14.3) Platelet Count 226 10^3/uL (140-450) Mean Platelet Volume 7.8 fL (6.9-10.8) Neutrophils (%) (Auto) 88.4 % (37.0-80.0) Lymphocytes (%) (Auto) 4.0 % (10.0-50.0) Monocytes (%) (Auto) 7.5 % (0.0-12.0) Eosinophils (%) (Auto) 0.0 % (0.0-7.0) Basophils (%) (Auto) 0.1 % (0.0-2.0) Neutrophils # (Auto) 20.2 10 ^3/uL (1.6-8.6) Lymphocytes # (Auto) 0.9 10 ^3/uL (0.4-5.4) Monocytes # (Auto) 1.7 10 ^3/uL (0-1.3) Eosinophils # (Auto) 0 10 ^3/uL (0-0.8) Basophils # (Auto) 0 10 ^3/uL (0-0.2) Nucleated Red Blood Cells 0.0 % Sodium Level 134 mmol/L (136-145) Potassium Level 3.9 mmol/L (3.5-5.1) Chloride Level 104 mmol/L (98-107) Carbon Dioxide Level 12 mmol/L (20-31) Anion Gap 18 (5-15) Blood Urea Nitrogen 18 mg/dL (9-23) Creatinine 1.11 mg/dL (0.550-1.02) Glomerular Filtration Rate Calc 60 mL/min (>90) BUN/Creatinine Ratio 16.2 (10.0-20.0) Serum Glucose 195 mg/dL (74-106) Hemoglobin A1c 12.2 % A1C (<5.7) Calcium Level 9.2 mg/dL (8.7-10.4) Total Bilirubin 0.8 mg/dL (0.2-1.0) Aspartate Amino Transferase (AST) 12 U/L (13-40) Alanine Aminotransferase (ALT) 10 U/L (7-40) Alkaline Phosphatase 98 U/L (46-116) Total Protein 7.1 g/dL (5.7-8.2) Albumin 4.0 g/dL (3.2-4.8) Troponin I High Sensitivity 7 ng/L (</=34) Urine Color Colorless (Yellow) Urine Clarity Turbid (Clear) Urine pH 5.5 (5.0-9.0) Urine Specific [place] 1.025 (1.001-1.035) Urine Protein Negative (Negative) Urine Ketones 1+ (Negative) Urine Blood 2+ /uL (Negative) Urine Nitrite Negative (Negative) Urine Bilirubin Negative (Negative) Urine Urobilinogen Normal mg/dL (Negative) Urine Leukocyte Esterase 2+ /uL (Negative) Urine RBC 5 /hpf (0 - 4) Urine Microscopic WBC 46 /HPF (0-5) Urine Squamous Epithelial Cells Few /hpf (<5) Urine Bacteria Mod /hpf (None Seen) Urine Glucose 4+ mg/dL (Normal) Test 12/01/24 23:07 12/01/24 21:50 12/01/24 10:40 Lactic Acid Level 2.0 mmol/L (0.4-2.0) Prothrombin Time 10.6 sec (9.3-11.8) Prothrombin Time INR 1.00 (0.9-1.15) Activated Partial Thromboplast Time 31.9 SEC (24.5-34.5) B-Type Natriuretic Peptide 114.76 pg/mL (0-100) Lipase 35 U/L (12-53) Influenza Type A Antigen Negative (Negative) Influenza Type B Antigen Negative (Negative) SARS-CoV-2 Antigen (Rapid) Negative (NEGATIVE) Other Laboratory Tests 12/03/24 05:29 Brief Hx & Hospital Course: This is a 54 years old female with past medical history of hypertension, hyperlipidemia, OR, congestive heart failure, diabetes come to emergency department because of headache and fever chills and body aches. The patient CT scan abdomen pelvis showed:.1. Mild right hydroureteronephrosis with a suspected 7 mm stone in the distal ureter. Findings may represent obstructive uropathy and/or upper tract infection. Ultrasound of kidney just showed right hydronephrosis no evidence [place] [address]. The patient had fever and chills in the hospital. Urology was consulted. No further intervention per . Patient was given IV antibiotic with cefepime. The patient's blood culture showed Klebsiella pneumoniae sensitive to cefepime. Patient's WBC improved today however still feel very sick. Patient is still have body ache and chills. Discussed with [place] hospitalist, Dr. Mendes and he accepted the patient to transfer back to [place] for further management of her pyelonephritis and hydro nephrosis Physical exam: HEENT: Normocephalic atraumatic pupils equal react to light and accommodation. Extraocular muscles intact, conjunctiva pink, oropharynx moist, no thrush, no exudate. Lymphatic: No lymphadenopathy Cardiovascular exam: S1, S2 was heard. No murmurs, rubs, gallops Lung: Clear on auscultation bilaterally, no wheeze, rale, rhonchi. GI: Abdominal soft, nondistended, nontenderness, positive bowel sounds. Extremity: No crepitus, cyanosis, edema. Pedal pulses present bilateral. Full range of motion. Skin: Normal turgor, no rash. Psych: Alert, oriented x3. Neurology: No focal deficits, cranial nerve II to XII grossly intact. This medical document was created using an electronic medical record system with [employer] direct computerized dictation system. Although this document has been carefully reviewed, there may still be some phonetic and typographical errors. These areas are purely typographical due to imperfections of the software programs, and do not reflect any compromise in the patient's medical care. Condition at Discharge: Stable Final Diagnosis/Problems List Hydroureteronephrosis, Obstructive uropathy, Sepsis due to UTI Bacteremia due to Klebsiella pneumoniae Leukocytosis, Hyperglycemia, Uncontrolled diabetes, CHF, Hypertension, Hyperlipidemia, Discharge Disposition: Acute Care Facility Discharge Instruct/Medications Diet: Cardiac 2g Na,low cholest Activity: No Restrictions, As Tolerated Scheduled Amlodipine Besylate (Amlodipine Besylate), 1 TAB PO DAILY, (Reported) Aspirin (Aspirin), 81 MG PO DAILY, (Reported) Atorvastatin Calcium (Atorvastatin Calcium), 1 TAB PO DAILY, (Reported) Carvedilol (Carvedilol), 1 TAB PO BID, (Reported) Clopidogrel Bisulfate (Clopidogrel), 1 TAB PO DAILY, (Reported) Empagliflozin (Jardiance), 0.5 TAB PO DAILY, (Reported) Enalapril Maleate (Enalapril Maleate), 1 TAB PO BID, (Reported) Isosorbide Mononitrate (Isosorbide Mononitrate Er), 2 TAB PO BID, (Reported) Metformin Hydrochloride (Metformin Hcl Er), 2 TAB PO BID, (Reported) Spironolactone (Spironolactone), 1 TAB PO DAILY, (Reported) Discontinued Medications Enalapril Maleate (Enalapril Maleate), 10 MG PO BID, (Reported) Discontinued Reason: Prescription changed Discharge Statement: "Patient was advised to return to the ER or call 911 if any headaches, dizziness, shortness of breath, chest pain, abdominal pain, bleeding, fevers, or worsening of medical condition. Patient was counseled about treatment plan, medications, possible side effects, patientverbalized understanding. All questions were answered to the best of my ability. This discharge took greater then 30 minutes in planning, reviewing documentation, counseling the patient, and discussing with other team members." ASSESSMENT ASSESSMENT Assessment Date of Service: Dec 04, 2024 Billing Provider: WILFRID ANTONIO MD Common Visit Codes: 97112-LTI/OBS DISCH DAY >30min WILFRID ANTONIO MD Dec 04, 2024 12:18
--- NOTE | 2024-12-04 16:41 | DVHINCON2 ---
Date of service: Dec 04, 2024 Referring Physician Hospitalist Reason for Consultation 7 mm right distal ureteral stone with mild hydronephrosis History of Present Illness Patient admitted for headache, fever, body aches and chills. She was found to have microhematuria and 7 mm right distal ureteral stone with mild hydronephrosis. No flank pain reported. 54-year-old female with past medical history of hypertension, hyperlipidemia, NE, CHF, and diabetes who came to the hospital for complaints of a headache. Patient sates she woke up yesterday about 0900 with a severe headache. About 1600 she began having fevers, body aches and chills. She tried to treat her symptoms at home with over the counter mediations but she continued to worsen prompting her to come to the hospital. Past Medical History Cardiovascular: CHF, HTN, NE, hyperipidemia, Other (PTCA with cardiac stent) Endocrine: Diabetes Past Surgical History (x 1), Other (PTCA with cardiac stent) Family History: Patient reports no known family medical history. Allergies: Coded Allergies: NO KNOWN ALLERGIES (Unverified , 09/20/14) Home Meds Reported Medications Enalapril Maleate (Enalapril Maleate) 10 Mg Tab, 1 TAB PO BID for 100 Days, #200 12/03/24 Aspirin (Aspirin) 81 Mg Chw, 81 MG PO DAILY, TAB.CHEW 12/02/24 Isosorbide Mononitrate (Isosorbide Mononitrate Er) 30 Mg Tab, 2 TAB PO BID 12/02/24 Clopidogrel Bisulfate (CLOPIDOGREL) 75 Mg Tab, 1 TAB PO DAILY 12/02/24 Atorvastatin Calcium (ATORVASTATIN CALCIUM) 80 Mg Tab, 1 TAB PO DAILY 12/02/24 Spironolactone (Spironolactone) 25 Mg Tab, 1 TAB PO DAILY 12/02/24 Amlodipine Besylate (Amlodipine Besylate) 10 Mg Tab, 1 TAB PO DAILY 12/02/24 Carvedilol (Carvedilol) 3.125 Mg Tab, 1 TAB PO BID 12/02/24 Empagliflozin (Jardiance) 25 Mg Tab, 0.5 TAB PO DAILY 12/02/24 Metformin Hydrochloride (Metformin Hcl Er) 500 Mg Tab, 2 TAB PO BID 12/02/24 Discontinued Reported Medications Enalapril Maleate (Enalapril Maleate) 2.5 Mg Tab, 10 MG PO BID for 30 Days, MG 12/02/24 Review of Systems Constitutional: Yes: Fever, Chills, Sweats, Weakness, Malaise, Other (headache) Eyes: No: Pain, Vision change, Conjunctivae inflammation, Eyelid inflammation, Other, Redness ENT: No: Ear pain, Ear discharge, Nose pain, Nose discharge, Nose congestion, Mouth pain, Mouth swelling, Throat pain, Throat swelling, Other Respiratory: No: Cough, Dry, Shortness of breath, SOB with excertion, Wheezing, Hemoptysis, Pleuritic Pain, Sputum, Wheezing, Other Cardiovascular: No: Chest Pain, Palpitations, Orthopnea, Paroxysmal Noc. Dyspnea, Edema, Lt Headedness, Other Gastrointestinal: No: Nausea, Vomiting, Abdominal Pain, Diarrhea, Constipation, Melena, Hematochezia, Other Genitourinary: No Dysuria, No Frequency, No Incontinence, No Hematuria, No Retention, No Other Musculoskeletal: No: other, neck pain, shoulder pain, arm pain, back pain, hand pain, leg pain, foot pain Skin: No: Rash, Lesions, Jaundice, Bruising, Other Neurological: No: Weakness, Numbness, Incoordination, Change in speech, Confusion, Seizures, Other Allergies: Coded Allergies: NO KNOWN ALLERGIES (Unverified , 09/20/14) Medications Current Medications Medications Dose Ordered Sig/Ross Route Start Time Stop Time Status Last Admin Dose Admin Cefepime HCl 50 ml @ 12.5 mls/hr Q8HR IV 12/02/24 06:00 Sodium Chloride 10 ml Q8HR IV 12/02/24 14:00 UNV Acetaminophen/ Hydrocodone Bitart 1 tab Q4HP PRN PO 12/02/24 12:00 UNV Ondansetron HCl 4 mg Q4HP PRN IV 12/02/24 12:00 UNV Docusate Sodium 100 mg BIDPRN PRN PO 12/02/24 12:00 UNV Acetaminophen 650 mg Q6HP PRN PO 12/02/24 12:00 UNV Diagnostic Test (Pha) 1 strip ACHS 12/02/24 17:00 UNV Insulin Human Regular HS SC 12/02/24 22:00 UNV Insulin Human Regular AC SC 12/02/24 17:00 UNV Dextrose 50 ml UD PRN IV 12/02/24 12:00 UNV Vital Signs Vital Signs Date Time Temp Pulse Resp B/P (MAP) Pulse Ox O2 Delivery O2 Flow Rate FiO2 12/04/24 13:00 98.3 79 20 110/70 (83) 95 98.3 12/04/24 08:00 Room Air* 0 21 Physical Exam Vital Signs Date Time Temp Pulse Resp B/P (MAP) Pulse Ox O2 Delivery O2 Flow Rate FiO2 12/02/24 08:28 92 27 97 Room Air* 0 21 12/02/24 08:28 100.0 134/72 (92) 100.0 General Appearance: Alert, Oriented X3, Cooperative, mild distress, Other (head ache and weakness) HEENT: Atraumatic, PERRLA Respiratory: Clear to auscultation, Normal air movement Cardiovascular: Regular rate, Normal S1, Normal S2 Abdominal: Normal bowel sounds, Soft, No tenderness Extremities: No clubbing, No cyanosis, No edema, Normal pulses, No ten derness/swelling Skin: No rashes, No breakdown, No significant lesion Neuro: Normal gait, Normal speech, Strength at 5/5 X4 ext, Normal tone Psych/Mental Status: Mental status NL, Mood NL Labs/Diagnostic Data Labs Test 12/04/24 16:11 12/03/24 05:29 12/02/24 00:20 12/01/24 23:20 Range/Units POC Glucose 279 H 70-106 mg/dl White Blood Count 22.8 H 4.4-10.8 10^3/uL Red Blood Count 4.55 4.0-5.20 10^6/uL Hemoglobin 12.5 12.2-16.2 g/dL Hematocrit 39.4 36.0-46.0 % Mean Corpuscular Volume 86.5 # 80.0-100.0 fL Mean Corpuscular Hemoglobin 27.5 L 28.0-32.0 pg Mean Corpuscular Hemoglobin Concent 31.8 L 32.0-36.0 g/dL Red Cell Distribution Width 15.9 H 11.8-14.3 % Platelet Count 226 140-450 10^3/uL Mean Platelet Volume 7.8 6.9-10.8 fL Neutrophils (%) (Auto) 88.4 H 37.0-80.0 % Lymphocytes (%) (Auto) 4.0 L 10.0-50.0 % Monocytes (%) (Auto) 7.5 0.0-12.0 % Eosinophils (%) (Auto) 0.0 0.0-7.0 % Basophils (%) (Auto) 0.1 0.0-2.0 % Neutrophils # (Auto) 20.2 H 1.6-8.6 10 ^3/uL Lymphocytes # (Auto) 0.9 0.4-5.4 10 ^3/uL Monocytes # (Auto) 1.7 H 0-1.3 10 ^3/uL Eosinophils # (Auto) 0 0-0.8 10 ^3/uL Basophils # (Auto) 0 0-0.2 10 ^3/uL Nucleated Red Blood Cells 0.0 % Sodium Level 134 L 136-145 mmol/L Potassium Level 3.9 3.5-5.1 mmol/L Chloride Level 104 98-107 mmol/L Carbon Dioxide Level 12 L 20-31 mmol/L Anion Gap 18 H 5-15 Blood Urea Nitrogen 18 9-23 mg/dL Creatinine 1.11 H 0.550-1.02 mg/dL Glomerular Filtration Rate Calc 60 >90 mL/min BUN/Creatinine Ratio 16.2 10.0-20.0 Serum Glucose 195 H 74-106 mg/dL Hemoglobin A1c 12.2 H <5.7 % A1C Calcium Level 9.2 8.7-10.4 mg/dL Total Bilirubin 0.8 0.2-1.0 mg/dL Aspartate Amino Transferase (AST) 12 L 13-40 U/L Alanine Aminotransferase (ALT) 10 7-40 U/L Alkaline Phosphatase 98 46-116 U/L Total Protein 7.1 5.7-8.2 g/dL Albumin 4.0 3.2-4.8 g/dL Troponin I High Sensitivity 7 </=34 ng/L Urine Color Colorless Yellow Urine Clarity Turbid H Clear Urine pH 5.5 5.0-9.0 Urine Specific [place] 1.025 1.001-1.035 Urine Protein Negative Negative Urine Ketones 1+ H Negative Urine Blood 2+ H Negative /uL Urine Nitrite Negative Negative Urine Bilirubin Negative Negative Urine Urobilinogen Normal Negative mg/dL Urine Leukocyte Esterase 2+ Negative /uL Urine RBC 5 0 - 4 /hpf Urine Microscopic WBC 46 H 0-5 /HPF Urine Squamous Epithelial Cells Few <5 /hpf Urine Bacteria Mod H None Seen /hpf Urine Glucose 4+ H Normal mg/dL Test 12/01/24 23:07 12/01/24 21:50 12/01/24 10:40 Range/Units Lactic Acid Level 2.0 0.4-2.0 mmol/L Prothrombin Time 10.6 9.3-11.8 sec Prothrombin Time INR 1.00 0.9-1.15 Activated Partial Thromboplast Time 31.9 24.5-34.5 SEC B-Type Natriuretic Peptide 114.76 0-100 pg/mL Lipase 35 12-53 U/L Influenza Type A Antigen Negative Negative Influenza Type B Antigen Negative Negative SARS-CoV-2 Antigen (Rapid) Negative NEGATIVE Microbiology Date/Time Source Procedure Growth Status 12/01/24 23:11 Blood Blood Culture - Preliminary Resulted 12/01/24 21:39 Voided Urine Urine Culture - Preliminary Resulted PATIENT: ROSALVA GAMBINO ACCT: [id number] UNIT: [id number] : 1970 LOC: ER ROOM / BED: / AGE / SEX: 54 / F ADM STATUS: REG ER SERVICE [id number] ORDERING PHYSICIAN: HUGO SELLERS DO PROCEDURE(s): ABPL - CT AB PEL WO CON-NO ORAL OR IV REASON: epig pain ORDER NUMBER(s): [id number], ACCESSION NUMBER(s): [id number] Exam: CT CT AB PEL WO CON-NO ORAL OR IV History: epig pain Comparison Study: None Technique: Multidetector spiral CT of the abdomen was performed from lung bases to pubic symphysis. Imaging was performed without IV contrast. Axial, coronal and sagittal multiplanar reformats were obtained from the axial data set by the technologist. Radiation Dose : 1. Abdomen/Pelvis: CTDIvol 14.11 mGy, DLP 3.92 mGy*cm. Findings: Evaluation of solid organs is limited due to lack of intravenous contrast use. Assessment is further limited by beam hardening and streak artifact from arms down positioning. Lower Chest: No acute findings. Left coronary stent. Mitral annular calcification. Liver: Elongated right lobe. Borderline hypoattenuation. Gallbladder and Biliary Tree: Unremarkable Pancreas: Moderate atrophy. Spleen: Unremarkable. Adrenal Glands: Unremarkable. Kidneys/Ureters: Mild hydroureteronephrosis and prominent perinephric stranding. The distal ureter is difficult to visualized, however a 7 mm calcification is seen along the expected path (coronal image 66/110). The left kidney and ureter are unremarkable. Bladder: Grossly unremarkable for degree of distention. Pelvic Organs: Absent uterus. Bowel: Normal caliber without wall thickening. No evidence of appendicitis. Moderate pancolonic stool burden. Vasculature: Mild atherosclerosis. Lymphadenopathy: No obvious adenopathy. Peritoneum: No ascites, free air, or fluid collection. Abdominal Wall: No significant hernia. Musculoskeletal: No acute findings. Mild degenerative changes. IMPRESSION: 1. Mild right hydroureteronephrosis with a suspected 7 mm stone in the distal ureter. Findings may represent obstructive uropathy and/or upper tract infection. 2. No other acute abdominopelvic abnormality within the exam limitations. Radiation optimization: All CT scans at this facility use at least one of these dose optimization techniques: automated exposure control mA and/or kV adjustment per patient size (includes targeted exams where dose is matched to clinical indication) or iterative reconstruction. ATED BY: BENJAMIN GUTIERREZ MD DICTATED DATE/TIME: 12/02/2442 SIGNED BY: BENJAMIN GUTIERREZ MD SIGNED DATE/TIME: 12/02/2442 CC: Assessment Right distal ureteral stone with mild hydronephrosis Leukocytosis Microhematuria Plan/Recommendation Renal US/Bladder US to confirm ureteral jets Expulsive measures Pain control Outpatient lithotripsy per [facility] TBA Plan discussed with: BRANDON Thompson MD Dec 04, 2024 16:41
--- NOTE | 2024-12-04 17:40 | DVH ---
INDICATION: Right hydronephrosis on CT. Request to check for ureteral jets. TECHNIQUE: Multiple real-time sonographic images of the kidneys and bladder were obtained. COMPARISON: None FINDINGS: The right kidney measures 11.8 cm in length, which is normal in size. There is normal echog enicity of the right kidney. Mild right hydronephrosis. The left kidney measures 10.7 cm in length, which is normal in size. There is normal echogenicity of the left kidney. There is mild prominence of the renal pelvis. No left hydronephrosis. The urinary bladder is mostly collapsed about a Mackay catheter balloon. The bladder volume at the ti me of the examination is 106 cc. Both ureteral jets are visualized. IMPRESSION: Mild right hydronephrosis. No left hydronephrosis. Both ureteral jets are visualized.
[2024-12-04] MEDS: MANNITOL FTV 25% 12.5 GM/50 ML 50 ML IV ONE (18:01)
== END 2024-12-04 22:06 | disposition short-term general hospital (02) | DRG 720 ==
LOC: ER 20:00 → EDBD 20:00 → OVERFLOW 12-02 11:56 → EAST 12-02 15:07
PROVIDERS: ADMIT Internal Medicine; ATTEND Internal Medicine
DX: A41.59 Other Gram-negative sepsis (principal); I11.0 Hypertensive heart disease with heart failure; I50.9 Heart failure, unspecified; N13.6 Pyonephrosis; E11.65 Type 2 diabetes mellitus with hyperglycemia; E78.5 Hyperlipidemia, unspecified; F41.9 Anxiety disorder, unspecified; Z95.5 Presence of coronary angioplasty implant and graft; I25.2 Old myocardial infarction; Z79.899 Other long term (current) drug therapy; Z79.82 Long term (current) use of aspirin; Z79.84 Long term (current) use of oral hypoglycemic drugs
CPT/HCPCS: 36415; 70450; 71045; 74176; 76775; 80053; 81001; 82962; 83036; 83605; 83690; 83880; 84484; 85025; 85610; 85730; 87040; 87077; 87086; 87186; 87426; 87804; 96361; 96365; 96375; 99291; G0378; J1815; J2405